=== PATIENT | male | born 1935 | race Caucasian/White ===

== ENCOUNTER 2016-12-20 11:50 | Day surgery (SDC) | payer MEDICARE, OTHER ==
[~2016-12-20 11:50] MED LIST: Lactated Ringers 1,000 ML IV SCH; Lidocaine 1%/Sod Bicarbonate in NS 8.4% 1 ML Syringe PRN; Sodium Chloride 0.9% 10 ML Syringe FLUSH PRN
--- NOTE | 2016-12-20 13:16 | PCM.PREANE ---
Preanesthetic Assessment - Procedure Proposed Procedure: EGD and hemhorroidal banding - Anesthesia/Transfusion/Family Hx Anesthesia History: Prior Anesthesia Without Reaction Family History of Anesthesia Reaction: No - Review of Systems General: Appetite (decreased appetite due to stomach problems after eating) Pulmonary: No Symptoms Cardiovascular: No Symptoms Gastrointestinal: Abdominal pain, Decreased appetite, Nausea Neurological: Dizziness - Physical Assessment NPO Status Date: 12/20/16 NPO Status Time: 06:00 O2 Sat by Pulse Oximetry: 100 Respiratory Rate: 16 Vital Signs: Last Vital Signs Temp 36.4 C 12/20/16 12:05 Pulse 51 L 12/20/16 12:05 Resp 16 12/20/16 12:05 BP 115/54 L 12/20/16 12:05 Pulse Ox 100 12/20/16 12:05 Height: 1.7 m Weight: 64.864 kg ASA Class: 2 Mental Status: Alert & Oriented x3 Airway Class: Mallampati = 2 Dentition: Reports: Normal Dentition Thyro-Mental Finger Breadths: 3 Mouth Opening Finger Breadths: 3 ROM/Head Extension: Full Lungs: Clear to auscultation, Normal respiratory effort Cardiovascular: Regular Rate, Regular Rhythm - Lab Values: Labs from [place] 12/12/16 hgb A1C - 6.5 wbc - 3.7 hgb - 12.9 hct - 37.1 PLT - 149 BMP WNL WITH EXCEPTION OF ELEVATED BUN 29 AND GLUCOSE 130 - Allergies Allergies/Adverse Reactions: Allergies Allergy/AdvReac Type Severity Reaction Status Date / Time Iodinated Contrast Media - Allergy Cannot Verified 12/19/16 13:56 Oral and Remember [Iodinated Contrast Media - IV Dye] terazosin Allergy Cannot Verified 12/19/16 13:56 Remember atorvastatin calcium AdvReac Nausea and Verified 12/19/16 13:56 [From Lipitor] Vomiting morphine AdvReac Hallucinati Verified 12/19/16 13:56 ons - Acknowledgements Anesthesia Type Planned: MAC Pt an Appropriate Candidate for the Planned Anesthesia: Yes Alternatives and Risks of Anesthesia Discussed w Pt/Guardian: Yes Pt/Guardian Understands and Agrees with Anesthesia Plan: Yes PreAnesthesia Questionnaire HEENT History: Reports: Cataract, Impaired vision Other HEENT History: wears eyeglasses Cardiovascular History: Reports: CAD, High cholesterol, Hypertension, Stents Respiratory History: Reports: None Gastrointestinal History: Reports: Gastritis, GERD, Hemorrhoids, Other (see below) Other Gastrointestinal History: duodenitis, , ulcers, umbilical hernia, tubular adenoma, polyps Genitourinary History: Reports: Prostate disorder, Renal calculus, Retention, urinary, UTI, 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: Reports: None Musculoskeletal History: Reports: Arthritis, Gout Neurological History: Reports: Other (see below) Other Neuro History: dizziness Psychiatric History: Reports: None Endocrine/Metabolic History: Reports: Diabetes, type II Hematologic History: Reports: Anemia Immunologic History: Reports: None Oncologic (Cancer) History: Reports: Prostate Dermatologic History: Reports: None - Past Surgical History Head Surgeries/Procedures: Reports: None HEENT Surgical History: Reports: Cataract surgery, Tonsillectomy GI Surgical History: Reports: Colonoscopy, EGD Musculoskeletal Surgical History: Reports: Hip replacement Other Musculoskeletal Surgeries/Procedures:: bilateral hip replacements - SUBSTANCE USE Smoking Status *Q: Former Smoker (Quit 1979 after 30 pack yr hx) Tobacco Use Within Last Twelve Months: Cigarettes Second Hand Smoke Exposure: No Days Per Week of Alcohol Use: 1 Number of Drinks Per Day: 0 Total Drinks Per Week: 0 Recreational Drug Use History: No - HOME MEDS Home Medications: Home Meds Allopurinol 50 mg PO DAILY 10/02/14 [History] Enalapril [Vasotec] 2.5 mg PO DAILY 10/02/14 [History] Pravastatin [Pravachol] 10 mg PO DAILY 10/02/14 [History] Tamsulosin [Flomax] 0.4 mg PO DAILY 10/02/14 [History] metFORMIN [Glucophage XR] 500 mg PO TID 10/01/15 [History] Calcium Carbonate [Calcium] 500 mg PO DAILY 07/31/16 [History] Finasteride 1 tab PO DAILY 07/31/16 [History] Omeprazole 20 mg PO DAILY #90 cap.cr 08/01/16 [Rx] Cholecalciferol (Vitamin D3) [Vitamin D3] 2,000 mg PO DAILY 12/19/16 [History] Ciprofloxacin HCl [Cipro] 250 mg PO BID 12/19/16 [History] Cyanocobalamin (Vitamin B-12) [Vitamin B-12] 1 tab PO DAILY 12/19/16 [History] - CURRENT (IN HOUSE) MEDS Current Meds: Current Medications Lactated Ringer's (Ringers, Lactated) 1,000 mls @ 125 mls/hr IV ASDIRECTED [place] Stop: 12/20/16 23:00 Last Admin: 12/20/16 12:20 Dose: 125 mls/hr Lidocaine/Sodium Bicarbonate (Buffered Lidocaine 1% In Ns 8.4%) 0.25 ml .XX ONETIME PRN PRN Reason: Prior to IV Start Stop: 12/20/16 18:00 Last Admin: 12/20/16 12:20 Dose: 0.25 ml Sodium Chloride (Saline Flush) 10 ml FLUSH ASDIRECTED PRN PRN Reason: Keep Vein Open Stop: 12/20/16 18:00 Preanesthetic Assessment - ANESTHESIA/TRANSFUSION/FAMILY HX Anesthesia/Transfusion History: Prior Anesthesia (no problems) Family History of Anesthesia Reaction: No - PHYSICAL ASSESSMENT O2 Sat by Pulse Oximetry: 100 RR: 16 Vital Signs: Last Vital Signs Temp 36.4 C 12/20/16 12:05 Pulse 51 L 12/20/16 12:05 Resp 16 12/20/16 12:05 BP 115/54 L 12/20/16 12:05 Pulse Ox 100 12/20/16 12:05 Height: 1.7 m Weight: 64.864 kg NPO Status Date: 12/20/16 NPO Status Time: 06:00 - ALLERGIES Allergies/Adverse Reactions: Allergies Allergy/AdvReac Type Severity Reaction Status Date / Time Iodinated Contrast Media - Allergy Cannot Verified 12/19/16 13:56 Oral and Remember [Iodinated Contrast Media - IV Dye] terazosin Allergy Cannot Verified 12/19/16 13:56 Remember atorvastatin calcium AdvReac Nausea and Verified 12/19/16 13:56 [From Lipitor] Vomiting morphine AdvReac Hallucinati Verified 12/19/16 13:56 ons
[2016-12-20] MEDS ORDERED: Lidocaine 1% 4 ML ONE (13:55)
[2016-12-20] MEDS ORDERED: Propofol 200 MG/20 ML SDV ONE (13:55)
--- NOTE | 2016-12-20 14:13 | PCM.OPNOTE ---
- General Post-Op/Procedure Note Date of Surgery/Procedure: 12/20/16 Operative Procedure(s): Diagnostic EGD with cold forceps biopsy, hemorrhoidal banding Pre Op Diagnosis: History of intermittent rectal bleeding with evidence of internal hemorrhoids on recent colonoscopy, acute on chronic epigastric abdominal pain with history of gastric ulcer disease Post-Op Diagnosis: Mild gastritis, mild duodenitis, internal hemorrhoids Anesthesia Technique: MAC Primary Surgeon: Radha Perez Anesthesia Provider: Girish Gonsalez Pathology: Gastric antrum biopsies Fluid Replacement, Intraop: 700 (mL crystalloid) EBL in mLs: 1 Complications: None Condition: Good Free Text/Narrative:: INDICATION FOR PROCEDURE: The patient is a 81-year-old man who was initially referred to me by Dr. Gm Perez for evaluation of abdominal pain. I performed a diagnostic EGD for the patient on 08-11-16 at [facility]. He had been found to have gastritis and duodenitis with the appearance of very early duodenal ulcers. A colonoscopy and also been performed demonstrating internal hemorrhoids. The patient had been having waxing and waning hematochezia since that time and is desirous of banding. He also, despite multiple office visits for counseling and dietary interventions, as well as medical management, has had continued epigastric abdominal pain. We had discussed repeat diagnostic EGD and risks of the associated procedure. We agreed to perform hemorrhoidal banding at that time. The patient found these risks acceptable and agreed to proceed. DESCRIPTION OF PROCEDURE: The patient was taken to the operating room and placed in the left lateral decubitus position. After induction of adequate sedation, a bite block was placed. A standard Olympus gastroscope was inserted into the oropharynx and guided down the esophagus without difficulty. The gastroesophageal junction was appreciated at 40 cm from the teeth. There was no evidence of stricture or esophageal ulcerations. The scope was advanced into the stomach, and there was very mild gastritis, most evident around the antrum with a few scattered petechia. The scope was passed into the proximal jejunum and the duodenum which showed a few petechia in segment D1 and D2. There were no ulcerations. The proximal jejunum was grossly normal in appearance. The scope was withdrawn into the antrum, and additional cold forceps biopsies were obtained. The remainder of the gastric body was examined , and there were no further abnormalities. The scope was retroflexed, and there was no evidence of hiatal hernia. The scope was straightened and withdrawn to the GE junction. Additional cold forceps biopsies were obtained of the distal esophagus. The scope was withdrawn through the remainder of the esophagus and no further abnormalities were noted. The posterior oropharynx was grossly normal in appearance. The scope was then fully withdrawn. Was then turned to hemorrhoidal banding. A lubricated endoscope was placed into the anus. There was mild enlargement of the internal hemorrhoids. All 3 hemorrhoidal complexes were banded using the short shot web producer device. The patient was awakened from sedation and transferred to the recovery room in stable condition having tolerated the procedure well. POSTOPERATIVE PLAN: The patient will follow up in approximately 7-10 days to discuss their pathology and how their symptoms are progressing. The patient is to continue omeprazole 20mg daily and a GERD diet. Post banding instructions also provided. The patient is to call with any worsening of symptoms or questions prior to appointment.
[2016-12-20 15:00] VITALS: BP 128/58
== END 2016-12-20 15:00 | disposition home or self-care (01) ==
LOC: JD.SDS 11:50
PROVIDERS: ATTEND Surgery
DX: K29.50 Unspecified chronic gastritis without bleeding (principal); I10 Essential (primary) hypertension; K21.9 Gastro-esophageal reflux disease without esophagitis; I25.10 Atherosclerotic heart disease of native coronary artery without angina pectoris; Z88.8 Allergy status to other drugs, medicaments and biological substances; E11.9 Type 2 diabetes mellitus without complications; Z87.891 Personal history of nicotine dependence; Z95.5 Presence of coronary angioplasty implant and graft; Z98.890 Other specified postprocedural states; Z79.899 Other long term (current) drug therapy
CPT/HCPCS: 43239; 46945; J7120; 00902; 88305; J2704

== ENCOUNTER 2017-02-28 14:36 | Emergency (ER) | payer MEDICARE, OTHER ==
[2017-02-28] MEDS ORDERED: Sodium Chloride 0.9% 10 ML Syringe FLUSH PRN (15:04)
--- NOTE | 2017-02-28 15:41 | EDM.PDOC ---
ED HPI GENERAL MEDICAL PROBLEM - General Chief Complaint: Syncope Stated Complaint: BLOOD IN STOOL Time Seen by Provider: 02/28/17 14:55 Source of Information: Reports: Patient, RN Notes Reviewed - History of Present Illness INITIAL COMMENTS - FREE TEXT/NARRATIVE: 82-year-old male comes in with rectal bleeding, he states that he had an episode of blood clots passing spontaneously when not on the toilet this past morning a few hours ago and then once again this afternoon about an hour ago. He has had a recent history of rectal bleeding dating back to about the past 3 months. He has had colonoscopy, he has had some hemorrhoids banded and has continued to have "streaks of blood with his BMs "almost every day". I visited with Dr. Durán who upon checking his medical record sees that he did see Dr. Christine, one of the surgeons at [place] in [place] about 2 weeks ago. At that point the endoscope he did see a streak of blood at the banding site, did not recommend further hemorrhoid banding at that time. He has no chest pain or difficulty breathing. He states he feels slightly dizzy when standing, especially when first standing chronically, not any worse today than usual. No abnormal pain, no nausea or vomiting. To his knowledge he is not on any blood thinners. - Related Data Allergies Allergy/AdvReac Type Severity Reaction Status Date / Time Iodinated Contrast Media - Allergy Cannot Verified 02/28/17 14:51 Oral and Remember [Iodinated Contrast Media - IV Dye] terazosin Allergy Cannot Verified 02/28/17 14:51 Remember atorvastatin calcium AdvReac Nausea and Verified 02/28/17 14:51 [From Lipitor] Vomiting morphine AdvReac Hallucinati Verified 02/28/17 14:51 ons Home Meds: Home Meds Allopurinol 50 mg PO DAILY 10/02/14 [History] Enalapril [Vasotec] 2.5 mg PO DAILY 10/02/14 [History] Pravastatin [Pravachol] 10 mg PO DAILY 10/02/14 [History] Tamsulosin [Flomax] 0.4 mg PO BEDTIME 10/02/14 [History] metFORMIN [Glucophage XR] 500 mg PO TID 10/01/15 [History] Calcium Carbonate [Calcium] 500 mg PO DAILY 07/31/16 [History] Finasteride 5 mg PO DAILY 07/31/16 [History] Omeprazole 20 mg PO DAILY #90 cap.cr 08/01/16 [Rx] Cholecalciferol (Vitamin D3) [Vitamin D3] 2,000 mg PO DAILY 12/19/16 [History] Cyanocobalamin (Vitamin B-12) [Vitamin B-12] 1,000 mcg PO DAILY 12/19/16 [ History] Past Medical History HEENT History: Reports: Cataract, Impaired Vision Other HEENT History: wears eyeglasses Cardiovascular History: Reports: CAD, High Cholesterol, Hypertension, Stents Respiratory History: Reports: None Gastrointestinal History: Reports: Gastritis, GERD, Hemorrhoids, Other (See Below) Other Gastrointestinal History: duodenitis, , ulcers, umbilical hernia, tubular adenoma, polyps Genitourinary History: Reports: Prostate Disorder, Renal Calculus, Retention, Urinary, UTI, Recurrent 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 Musculoskeletal History: Reports: Arthritis, Gout Neurological History: Reports: Other (See Below) Other Neuro History: dizziness Psychiatric History: Reports: None Endocrine/Metabolic History: Reports: Diabetes, Type II Hematologic History: Reports: Anemia Immunologic History: Reports: None Oncologic (Cancer) History: Reports: Prostate Dermatologic History: Reports: None - Past Surgical History Head Surgeries/Procedures: Reports: None HEENT Surgical History: Reports: Cataract Surgery, Tonsillectomy Musculoskeletal Surgical History: Reports: Hip Replacement Social & Family History - Family History Family Medical History: Noncontributory - Tobacco Use Smoking Status *Q: Never Smoker Years of Tobacco use: 30 Used Tobacco, but Quit: Yes Month Tobacco Last Used: 1959 Second Hand Smoke Exposure: No - Caffeine Use Caffeine Use: Reports: None - Alcohol Use Days Per Week of Alcohol Use: 1 Number of Drinks Per Day: 0 Total Drinks Per Week: 0 - Recreational Drug Use Recreational Drug Use: No - Living Situation & Occupation Living situation: Reports: , with Spouse ED ROS GENERAL - Review of Systems Review Of Systems: See Below Constitutional: Denies: Fever, Chills HEENT: Reports: No Symptoms Respiratory: Denies: Shortness of Breath, Cough Cardiovascular: Denies: Chest Pain GI/Abdominal: Reports: Hematochezia (had 2 episodes of blood clots passing per rectum today). Denies: Abdominal Pain, Nausea, Vomiting Musculoskeletal: Reports: No Symptoms Skin: Reports: No Symptoms Neurological: Reports: Dizziness (Mildly, chronically) ED EXAM, GI/ABD - Physical Exam Exam: See Below General Appearance: Alert Throat/Mouth: Normal Inspection, Normal Oropharynx Head: No: Facial Swelling Neck: Normal Inspection, Supple Respiratory/Chest: No Respiratory Distress, Lungs Clear, Normal Breath Sounds Cardiovascular: Regular Rate, Rhythm GI/Abdominal: Soft, Non-Tender. No: Guarding Rectal (Males) Exam: Other (Trace of brown tinged mucus, no stool palpable, no unusual mass or tenderness palpable, but brown mucus did test heme-positive) Back Exam: No: CVA Tenderness (L), CVA Tenderness (R) Extremities: Normal Inspection. No: Pedal Edema, Leg Pain Neurological: Alert, No Motor/Sensory Deficits Skin Exam: Warm, Dry, Normal Color EKG INTERPRETATION EKG Date: 02/28/17 Rhythm: NSR Jolon: normal P-wave: present QRS: normal ST-T: normal Course - Vital Signs Last Recorded V/S: Last Vital Signs Temp 98.1 F 02/28/17 14:40 Pulse 52 L 02/28/17 17:30 Resp 18 02/28/17 17:30 BP 156/70 H 02/28/17 17:30 Pulse Ox 97 02/28/17 17:30 Orthostatic Blood Pressure [ 103/58 Standing] Orthostatic Blood Pressure [ 111/53 Supine] - Orders/Labs/Meds Orders: Active Orders 24 hr Category Date Time Status EKG 12 Lead [EKG Documentation Completion] [RC] STAT Care 02/28/17 15:04 Active Peripheral IV Care [RC] . DIRECTED Care 02/28/17 15:05 Active Peripheral IV Insertion Adult [OM.PC] Stat Oth 02/28/17 15:04 Ordered Labs: Laboratory Tests 02/28/17 02/28/17 02/28/17 Range/Units 15:05 15:05 15:05 WBC 4.04 L (4.23-9.07) K/mm3 RBC 3.88 L (4.63-6.08) M/mm3 Hgb 12.6 L (13.7-17.5) gm/L Hct 37.6 L (40.1-51.0) % MCV 96.9 H (79.0-92.2) fl MCH 32.5 H (25.7-32.2) pg MCHC 33.5 (32.2-35.5) g/dl RDW Std Deviation 45.1 H (35.1-43.9) fL Plt Count 160 L (163-337) K/mm3 MPV 9.4 (9.4-12.3) fl Neut % (Auto) 67.9 (34.0-67.9) % Lymph % (Auto) 13.4 L (21.8-53.1) % [place] % (Auto) 13.6 H (5.3-12.2) % Eos % (Auto) 4.7 (0.8-7.0) Baso % (Auto) 0.2 (0.1-1.2) % Neut # (Auto) 2.74 (1.78-5.38) K/mm3 Lymph # (Auto) 0.54 L (1.32-3.57) K/mm3 [place] # (Auto) 0.55 (0.30-0.82) K/mm3 Eos # (Auto) 0.19 (0.04-0.54) K/mm3 Baso # (Auto) 0.01 (0.01-0.08) K/mm3 PT 10.2 (8.0-13.0) SECONDS INR 0.94 APTT (22-36) SECONDS Sodium 141 (136-145) mEq/L Potassium 4.4 (3.5-5.1) mEq/L Chloride 105 (98-107) mEq/L Carbon Dioxide 27 (21-32) mEq/L Anion Gap 13.4 (5-15) BUN 26 H (7-18) mg/dL Creatinine 0.9 (0.7-1.3) mg/dL Est Cr Clr Drug Dosing 60.18 mL/min Estimated GFR (MDRD) > 60 (>60) mL/min BUN/Creatinine Ratio 28.9 H (14-18) Glucose 183 H (83-115) mg/dL Calcium 9.3 (8.5-10.1) mg/dL Total Bilirubin 0.4 (0.2-1.0) mg/dL AST 19 (15-37) U/L ALT 31 (16-63) U/L Alkaline Phosphatase 104 (46-116) U/L Total Protein 6.9 (6.4-8.2) g/dl Albumin 3.7 (3.4-5.0) g/dl Globulin 3.2 gm/dL Albumin/Globulin Ratio 1.2 (1-2) Blood Type Gel Antibody Screen 02/28/17 02/28/17 Range/Units 15:05 15:05 WBC (4.23-9.07) K/mm3 RBC (4.63-6.08) M/mm3 Hgb (13.7-17.5) gm/L Hct (40.1-51.0) % MCV (79.0-92.2) fl MCH (25.7-32.2) pg MCHC (32.2-35.5) g/dl RDW Std Deviation (35.1-43.9) fL Plt Count (163-337) K/mm3 MPV (9.4-12.3) fl Neut % (Auto) (34.0-67.9) % Lymph % (Auto) (21.8-53.1) % [place] % (Auto) (5.3-12.2) % Eos % (Auto) (0.8-7.0) Baso % (Auto) (0.1-1.2) % Neut # (Auto) (1.78-5.38) K/mm3 Lymph # (Auto) (1.32-3.57) K/mm3 [place] # (Auto) (0.30-0.82) K/mm3 Eos # (Auto) (0.04-0.54) K/mm3 Baso # (Auto) (0.01-0.08) K/mm3 PT (8.0-13.0) SECONDS INR APTT 26 (22-36) SECONDS Sodium (136-145) mEq/L Potassium (3.5-5.1) mEq/L Chloride (98-107) mEq/L Carbon Dioxide (21-32) mEq/L Anion Gap (5-15) BUN (7-18) mg/dL Creatinine (0.7-1.3) mg/dL Est Cr Clr Drug Dosing mL/min Estimated GFR (MDRD) (>60) mL/min BUN/Creatinine Ratio (14-18) Glucose (83-115) mg/dL Calcium (8.5-10.1) mg/dL Total Bilirubin (0.2-1.0) mg/dL AST (15-37) U/L ALT (16-63) U/L Alkaline Phosphatase (46-116) U/L Total Protein (6.4-8.2) g/dl Albumin (3.4-5.0) g/dl Globulin gm/dL Albumin/Globulin Ratio (1-2) Blood Type O POSITIVE Gel Antibody Screen Negative Meds: Medications Discontinued Medications Generic Name Dose Route Start Last Admin Trade Name Sundar PRN Reason Stop Dose Admin Sodium Chloride 10 ml 02/28/17 15:04 02/28/17 15:20 Saline Flush FLUSH 10 ml ASDIRECTED PRN Administration Keep Vein Open - Re-Assessments/Exams Free Text/Narrative Re-Assessment/Exam: 02/28/17 17:22. hgb 12.5, vitals remain stable, he has been observed for about 2 hrs awaiting labs, no further bleeding while here in the ED, when I examined his perirectal area prior to discharge this was a small amt of blood tinged mucous and on further questioning it sounds like this is what he observed at home. He has had considerable work up for similar and likely more pronounced bleeding in the past. He does not appear to be having significant bleeding at this time. He is not a candidate for admission at this time. He will come back if sx worsen. Departure - Departure Time of Disposition: 17:34 Disposition: Home, Self-Care 01 Condition: fair Clinical Impression: Rectal bleed - Discharge Information Referrals: Gm Perez MD [Primary Care Provider] - Forms: ED Department Discharge Additional Instructions: rest, drink plenty of water, try follow up with Dr Durán tomorrow or Sunday , call in AM for appt., return to ED if sx worsening in any way. - My Orders Last 24 Hours: My Active Orders 02/28/17 15:04 EKG 12 Lead [EKG Documentation Completion] [RC] STAT Peripheral IV Insertion Adult [OM.PC] Stat 02/28/17 15:05 Peripheral IV Care [RC] . DIRECTED - Assessment/Plan Last 24 Hours: My Active Orders 02/28/17 15:04 EKG 12 Lead [EKG Documentation Completion] [RC] STAT Peripheral IV Insertion Adult [OM.PC] Stat 02/28/17 15:05 Peripheral IV Care [RC] . DIRECTED
[2017-02-28 18:02] VITALS: BP 156/70
== END 2017-02-28 17:55 | disposition home or self-care (01) ==
LOC: JD.ED 14:36
DX: K62.5 Hemorrhage of anus and rectum (principal); I10 Essential (primary) hypertension; I25.10 Atherosclerotic heart disease of native coronary artery without angina pectoris; E78.00 Pure hypercholesterolemia, unspecified; K21.9 Gastro-esophageal reflux disease without esophagitis; M19.90 Unspecified osteoarthritis, unspecified site; E11.9 Type 2 diabetes mellitus without complications; Z98.49 Cataract extraction status, unspecified eye; Z98.890 Other specified postprocedural states; Z96.649 Presence of unspecified artificial hip joint; Z87.891 Personal history of nicotine dependence; Z79.84 Long term (current) use of oral hypoglycemic drugs; Z79.899 Other long term (current) drug therapy; Z88.5 Allergy status to narcotic agent; Z88.8 Allergy status to other drugs, medicaments and biological substances; Z88.7 Allergy status to serum and vaccine; Z85.46 Personal history of malignant neoplasm of prostate
CPT/HCPCS: 36415; 80053; 85025; 85610; 85730; 86850; 86900; 86901; 93005; 99284; J7050; 99283

== ENCOUNTER 2017-04-27 21:27 | Emergency (ER) | payer MEDICARE, OTHER ==
--- NOTE | 2017-04-27 22:42 | EDM.PDOC ---
ED HPI GENERAL MEDICAL PROBLEM - General Chief Complaint: Genitourinary Problem Stated Complaint: BLOOD IN URINE Time Seen by Provider: 04/27/17 22:20 Source of Information: Reports: Patient History Limitations: Reports: No Limitations - History of Present Illness INITIAL COMMENTS - FREE TEXT/NARRATIVE: This is an 82-year-old male. He has a history of prostate cancer for which she receives a intramuscular shot every 6 months for the prostate cancer. He had one of the shots on Sunday or and has been doing fine. Apparently today when he got up he was not able to urinate but then he went to the leg and around 1 PM when he urinated he noted blood. He states there was lots of blood that just came out. Later he urinated again and noted blood clots. He denies any pain with urination. He denies any abdominal pain or back pain. He states he has a history of kidney stones but normally they hurt terribly and he's had nothing like that today. Because of all the blood in his urine he is concerned and comes to the ER for evaluation. He denies any fever or chills denies any cough or congestion states he's been feeling good other than where they gave him his shot. The patient does indicate that at times he has used a straight catheter for urinary retention but is not using a straight catheter for years. - Related Data Allergies Allergy/AdvReac Type Severity Reaction Status Date / Time Iodinated Contrast- Oral and Allergy Cannot Verified 02/28/17 14:51 IV Dye Remember [Iodinated Contrast Media - IV Dye] terazosin Allergy Cannot Verified 02/28/17 14:51 Remember atorvastatin calcium AdvReac Nausea and Verified 02/28/17 14:51 [From Lipitor] Vomiting morphine AdvReac Hallucinati Verified 02/28/17 14:51 ons Home Meds: Home Meds Allopurinol 50 mg PO DAILY 10/02/14 [History] Enalapril [Vasotec] 2.5 mg PO DAILY 10/02/14 [History] Pravastatin [Pravachol] 10 mg PO DAILY 10/02/14 [History] Tamsulosin [Flomax] 0.4 mg PO BEDTIME 10/02/14 [History] metFORMIN [Glucophage XR] 500 mg PO TID 10/01/15 [History] Finasteride 5 mg PO DAILY 07/31/16 [History] Omeprazole 20 mg PO DAILY #90 cap.cr 08/01/16 [Rx] Cholecalciferol (Vitamin D3) [Vitamin D3] 2,000 mg PO DAILY 12/19/16 [History] Cyanocobalamin (Vitamin B-12) [Vitamin B-12] 1,000 mcg PO DAILY 12/19/16 [ History] Past Medical History HEENT History: Reports: Cataract, Impaired Vision Other HEENT History: wears eyeglasses Cardiovascular History: Reports: CAD, High Cholesterol, Hypertension, Stents Respiratory History: Reports: None Gastrointestinal History: Reports: Chronic Diarrhea, Gastritis, GERD, GI Bleed, Hemorrhoids, Other (See Below) Other Gastrointestinal History: duodenitis, , ulcers, umbilical hernia, tubular adenoma, polyps Genitourinary History: Reports: Prostate Disorder, Renal Calculus, Retention, Urinary, UTI, 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: Reports: None Musculoskeletal History: Reports: Arthritis, Gout Neurological History: Reports: Other (See Below) Other Neuro History: dizziness Psychiatric History: Reports: None Endocrine/Metabolic History: Reports: Diabetes, Type II Hematologic History: Reports: Anemia Immunologic History: Reports: None Oncologic (Cancer) History: Reports: Prostate Dermatologic History: Reports: None - Past Surgical History Head Surgeries/Procedures: Reports: None HEENT Surgical History: Reports: Cataract Surgery, Tonsillectomy Musculoskeletal Surgical History: Reports: Hip Replacement Social & Family History - Family History Family Medical History: Noncontributory - Tobacco Use Smoking Status *Q: Former Smoker Years of Tobacco use: 30 Used Tobacco, but Quit: Yes Month Tobacco Last Used: 1983 Second Hand Smoke Exposure: No - Caffeine Use Caffeine Use: Reports: None - Alcohol Use Days Per Week of Alcohol Use: 1 Number of Drinks Per Day: 0 Total Drinks Per Week: 0 - Recreational Drug Use Recreational Drug Use: Yes Recreational Drug Use Frequency: Rarely - Living Situation & Occupation Living situation: Reports: , with Spouse ED ROS GENERAL - Review of Systems Review Of Systems: See Below Constitutional: Denies: Fever, Chills HEENT: Reports: No Symptoms Respiratory: Reports: No Symptoms Cardiovascular: Reports: No Symptoms Endocrine: Reports: No Symptoms GI/Abdominal: Denies: Abdominal Pain, Diarrhea, Nausea, Vomiting : Reports: Hematuria Musculoskeletal: Reports: No Symptoms Skin: Reports: No Symptoms Neurological: Reports: No Symptoms Psychiatric: Reports: No Symptoms Hematologic/Lymphatic: Reports: No Symptoms ED EXAM, RENAL/ - Physical Exam Exam: See Below Exam Limited By: No Limitations General Appearance: Alert, WD/WN, No Apparent Distress Eye Exam: Bilateral Eye: Normal Inspection Ears: Normal External Exam, Normal Canal, Normal TMs Nose: Normal Inspection Throat/Mouth: Normal Inspection, Normal Lips, Normal Voice Head: Atraumatic, Normocephalic Neck: Supple Respiratory/Chest: No Respiratory Distress, Lungs Clear Cardiovascular: Regular Rate, Rhythm, No Murmur GI/Abdominal: Soft, Non-Tender, No Distention. No: Guarding, Rigid, Rebound, Tender, Mass Back Exam: Full Range of Motion Extremities: Normal Inspection, Normal Range of Motion Neurological: Alert, Oriented Psychiatric: Normal Affect, Normal Mood Skin Exam: Warm, Dry Course - Vital Signs Last Recorded V/S: Last Vital Signs Temp 98.4 F 04/27/17 21:35 Pulse 68 04/27/17 21:35 Resp 16 04/27/17 21:35 BP 117/61 04/27/17 21:35 Pulse Ox 99 04/27/17 21:35 - Orders/Labs/Meds Labs: Laboratory Tests 04/27/17 04/27/17 04/27/17 Range/Units 21:52 23:15 23:15 WBC 4.30 (4.23-9.07) K/mm3 RBC 3.65 L (4.63-6.08) M/mm3 Hgb 12.1 L (13.7-17.5) gm/L Hct 34.9 L (40.1-51.0) % MCV 95.6 H (79.0-92.2) fl MCH 33.2 H (25.7-32.2) pg MCHC 34.7 (32.2-35.5) g/dl RDW Std Deviation 43.9 (35.1-43.9) fL Plt Count 145 L (163-337) K/mm3 MPV 9.2 L (9.4-12.3) fl Neut % (Auto) 68.8 H (34.0-67.9) % Lymph % (Auto) 13.3 L (21.8-53.1) % [place] % (Auto) 13.7 H (5.3-12.2) % Eos % (Auto) 3.5 (0.8-7.0) Baso % (Auto) 0.2 (0.1-1.2) % Neut # (Auto) 2.96 (1.78-5.38) K/mm3 Lymph # (Auto) 0.57 L (1.32-3.57) K/mm3 [place] # (Auto) 0.59 (0.30-0.82) K/mm3 Eos # (Auto) 0.15 (0.04-0.54) K/mm3 Baso # (Auto) 0.01 (0.01-0.08) K/mm3 Sodium 139 (136-145) mEq/L Potassium 3.7 (3.5-5.1) mEq/L Chloride 103 (98-107) mEq/L Carbon Dioxide 27 (21-32) mEq/L Anion Gap 12.7 (5-15) BUN 25 H (7-18) mg/dL Creatinine 1.1 (0.7-1.3) mg/dL Est Cr Clr Drug Dosing TNP Estimated GFR (MDRD) > 60 (>60) mL/min BUN/Creatinine Ratio 22.7 H (14-18) Glucose 167 H (83-115) mg/dL Calcium 9.3 (8.5-10.1) mg/dL Total Bilirubin 0.4 (0.2-1.0) mg/dL AST 17 (15-37) U/L ALT 29 (16-63) U/L Alkaline Phosphatase 112 (46-116) U/L Total Protein 6.5 (6.4-8.2) g/dl Albumin 3.3 L (3.4-5.0) g/dl Globulin 3.2 gm/dL Albumin/Globulin Ratio 1.0 (1-2) Urine Color [place] H (Yellow) Urine Appearance Slt cloudy H (Clear) Urine pH 6.0 (5.0-8.0) Ur Specific [place] 1.020 (1.005-1.030) Urine Protein 2+ H (Negative) Urine Glucose (UA) Negative (Negative) Urine Ketones Negative (Negative) Urine Occult Blood 3+ H (Negative) Urine Nitrite Negative (Negative) Urine Bilirubin Negative (Negative) Urine Urobilinogen 0.2 (0.2-1.0) Ur Leukocyte Esterase Negative (Negative) Urine RBC >100 H (0-5) /hpf Urine WBC 0-5 (0-5) /hpf Ur Epithelial Cells 0-5 (0-5) /hpf Amorphous Sediment Few H (NOT SEEN) /hpf Urine Bacteria Few (FEW) /hpf Urine Mucus Few (FEW) /hpf - Re-Assessments/Exams Free Text/Narrative Re-Assessment/Exam: 04/28/17 02:45 I spoke to the patient regarding his blood results and his urinalysis. The blood appears to be dissipating at this time in his urine. He is slightly anemic and has some abnormalities in his differential but no essential acute problems. He wants to go home at this time I encouraged him to follow-up with his family doctor this coming week or speak to his urologist. If the bleeding comes back and he needs to come back to the ER. Departure - Departure Time of Disposition: 02:46 Disposition: Home, Self-Care 01 Condition: Good Clinical Impression: Prostate cancer Hematuria Qualifiers: Hematuria type: gross Qualified Code(s): R31.0 - Gross hematuria - Discharge Information Referrals: Gm Perez MD [Primary Care Provider] - Forms: ED Department Discharge Additional Instructions: Continue to drink lots of fluids, if the bleeding resumes with blood clots you need to return to the ER otherwise continue with the fluids and follow-up with your family doctor next week as scheduled, you may also call your urologist's nurse and speak to her regarding the blood in the urine, return to the ER if your symptoms worsen
[2017-04-28 00:26] VITALS: BP 117/61
== END 2017-04-28 03:00 | disposition home or self-care (01) ==
LOC: JD.ED 21:27
DX: C61 Malignant neoplasm of prostate (principal); R31.0 Gross hematuria; I25.10 Atherosclerotic heart disease of native coronary artery without angina pectoris; E78.00 Pure hypercholesterolemia, unspecified; I10 Essential (primary) hypertension; E11.9 Type 2 diabetes mellitus without complications; K21.9 Gastro-esophageal reflux disease without esophagitis; Z91.041 Radiographic dye allergy status; Z88.5 Allergy status to narcotic agent; Z88.8 Allergy status to other drugs, medicaments and biological substances; Z79.899 Other long term (current) drug therapy; Z79.84 Long term (current) use of oral hypoglycemic drugs; Z87.442 Personal history of urinary calculi; Z87.440 Personal history of urinary (tract) infections; Z86.2 Personal history of diseases of the blood and blood-forming organs and certain disorders involving the immune mechanism; Z98.49 Cataract extraction status, unspecified eye; Z98.890 Other specified postprocedural states; Z96.649 Presence of unspecified artificial hip joint; Z87.891 Personal history of nicotine dependence
CPT/HCPCS: 36415; 80053; 81001; 85025; 99282; 99283

== ENCOUNTER 2017-09-21 14:45 | Emergency (ER) | payer MEDICARE, OTHER ==
[2017-09-21 15:00] VITALS: BP 138/76
[2017-09-21] MEDS ORDERED: Sodium Chloride 0.9% 10 ML Syringe FLUSH PRN (15:14)
[2017-09-21] MEDS ORDERED: Pantoprazole 40 MG Vial IVPUSH ONE (15:15)
--- NOTE | 2017-09-21 16:43 | EDM.PDOC ---
ED HPI GENERAL MEDICAL PROBLEM - General Chief Complaint: Abdominal Pain Stated Complaint: BLACK STOOLS Time Seen by Provider: 09/21/17 14:57 Source of Information: Reports: Patient History Limitations: Reports: No Limitations - History of Present Illness INITIAL COMMENTS - FREE TEXT/NARRATIVE: The patient presents with 5 days of black stools. He has no fever, chills, cough, chest pain, shortness of breath, dizziness, abdominal pain or dysuria. He says he had prostate cancer and had radiation. Since then he has had hematuria and blood in his stools. He had a colonoscopy a couple years ago. Dr Leo had to cautarize some vessels in his colon. He did take some pepto bismal a few days ago, but the dark stools started before that. Onset: Gradual Duration: Day(s): (5) Severity: Mild Improves with: Reports: None Worsens with: Reports: None Associated Symptoms: Reports: No Other Symptoms - Related Data Allergies Allergy/AdvReac Type Severity Reaction Status Date / Time Iodinated Contrast- Oral and Allergy Cannot Verified 02/28/17 14:51 IV Dye Remember [Iodinated Contrast Media - IV Dye] terazosin Allergy Cannot Verified 02/28/17 14:51 Remember atorvastatin calcium AdvReac Nausea and Verified 02/28/17 14:51 [From Lipitor] Vomiting morphine AdvReac Hallucinati Verified 02/28/17 14:51 ons Home Meds: Home Meds Allopurinol 50 mg PO DAILY 10/02/14 [History] Enalapril [Vasotec] 2.5 mg PO DAILY 10/02/14 [History] Pravastatin [Pravachol] 10 mg PO DAILY 10/02/14 [History] Tamsulosin [Flomax] 0.4 mg PO BEDTIME 10/02/14 [History] Finasteride 5 mg PO DAILY 07/31/16 [History] Omeprazole 20 mg PO DAILY #90 cap.cr 08/01/16 [Rx] Cholecalciferol (Vitamin D3) [Vitamin D3] 2,000 mg PO DAILY 12/19/16 [History] Cyanocobalamin (Vitamin B-12) [Vitamin B-12] 1,000 mcg PO DAILY 12/19/16 [ History] sitaGLIPtin Phosphate [Januvia] 50 mg PO DAILY 09/21/17 [History] Past Medical History HEENT History: Reports: Cataract, Impaired Vision Other HEENT History: wears eyeglasses Cardiovascular History: Reports: CAD, High Cholesterol, Hypertension, Stents Respiratory History: Reports: None Gastrointestinal History: Reports: Chronic Diarrhea, Gastritis, GERD, GI Bleed, Hemorrhoids, Other (See Below) Other Gastrointestinal History: duodenitis, , ulcers, umbilical hernia, tubular adenoma, polyps Genitourinary History: Reports: Prostate Disorder, Renal Calculus, Retention, Urinary, UTI, Recurrent 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 Musculoskeletal History: Reports: Arthritis, Gout Neurological History: Reports: Other (See Below) Other Neuro History: dizziness Psychiatric History: Reports: None Endocrine/Metabolic History: Reports: Diabetes, Type II Hematologic History: Reports: Anemia Immunologic History: Reports: None Oncologic (Cancer) History: Reports: Prostate Dermatologic History: Reports: None - Past Surgical History Head Surgeries/Procedures: Reports: None HEENT Surgical History: Reports: Cataract Surgery, Tonsillectomy Musculoskeletal Surgical History: Reports: Hip Replacement Social & Family History - Family History Family Medical History: Noncontributory - Tobacco Use Smoking Status *Q: Former Smoker Years of Tobacco use: 30 Used Tobacco, but Quit: Yes Month Tobacco Last Used: 45 Second Hand Smoke Exposure: No - Caffeine Use Caffeine Use: Reports: Coffee, Tea - Alcohol Use Days Per Week of Alcohol Use: 1 Number of Drinks Per Day: 0 Total Drinks Per Week: 0 - Recreational Drug Use Recreational Drug Use: No Recreational Drug Use Frequency: Rarely - Living Situation & Occupation Living situation: Reports: , with Spouse ED ROS GENERAL - Review of Systems Review Of Systems: See Below Constitutional: Reports: No Symptoms HEENT: Reports: No Symptoms Respiratory: Reports: No Symptoms Cardiovascular: Reports: No Symptoms Endocrine: Reports: No Symptoms GI/Abdominal: Reports: No Symptoms : Reports: No Symptoms Musculoskeletal: Reports: No Symptoms ED EXAM, GI/ABD - Physical Exam Exam: See Below Exam Limited By: No Limitations General Appearance: Alert, No Apparent Distress Ears: Normal External Exam Nose: Normal Inspection Head: Atraumatic, Normocephalic Neck: Normal Inspection Respiratory/Chest: No Respiratory Distress, Lungs Clear, Normal Breath Sounds Cardiovascular: Regular Rate, Rhythm, No Edema, No Murmur GI/Abdominal Exam: Soft, Non-Tender, No Organomegaly, No Mass Rectal (Males) Exam: Heme + Stool (weakly positive) Back Exam: Normal Inspection Course - Vital Signs Last Recorded V/S: Last Vital Signs Temp 97.5 F 09/21/17 14:57 Pulse 64 09/21/17 14:57 Resp 20 09/21/17 14:57 BP 138/76 09/21/17 14:57 Pulse Ox 100 09/21/17 14:57 - Orders/Labs/Meds Orders: Active Orders 24 hr Category Date Time Status Cardiac Monitoring [RC] . DIRECTED Care 09/21/17 15:14 Active Peripheral IV Care [RC] . DIRECTED Care 09/21/17 15:15 Active Sodium Chloride 0.9% [Saline Flush] Med 09/21/17 15:14 Active 10 ml FLUSH ASDIRECTED PRN Peripheral IV Insertion Adult [OM.PC] Stat Oth 09/21/17 15:14 Ordered Medication Orders Sodium Chloride (Saline Flush) 10 ml FLUSH ASDIRECTED PRN PRN Reason: Keep Vein Open Last Admin: 09/21/17 15:27 Dose: 10 ml Labs: Laboratory Tests 09/21/17 09/21/17 Range/Units 15:20 15:20 WBC 4.93 (4.23-9.07) K/mm3 RBC 4.05 L (4.63-6.08) M/mm3 Hgb 13.2 L (13.7-17.5) gm/L Hct 38.6 L (40.1-51.0) % MCV 95.3 H (79.0-92.2) fl MCH 32.6 H (25.7-32.2) pg MCHC 34.2 (32.2-35.5) g/dl RDW Std Deviation 44.2 H (35.1-43.9) fL Plt Count 162 L (163-337) K/mm3 MPV 9.6 (9.4-12.3) fl Neut % (Auto) 71.1 H (34.0-67.9) % Lymph % (Auto) 11.0 L (21.8-53.1) % [place] % (Auto) 13.2 H (5.3-12.2) % Eos % (Auto) 3.9 (0.8-7.0) Baso % (Auto) 0.2 (0.1-1.2) % Neut # (Auto) 3.51 (1.78-5.38) K/mm3 Lymph # (Auto) 0.54 L (1.32-3.57) K/mm3 [place] # (Auto) 0.65 (0.30-0.82) K/mm3 Eos # (Auto) 0.19 (0.04-0.54) K/mm3 Baso # (Auto) 0.01 (0.01-0.08) K/mm3 Sodium 140 (136-145) mEq/L Potassium 3.9 (3.5-5.1) mEq/L Chloride 105 (98-107) mEq/L Carbon Dioxide 26 (21-32) mEq/L Anion Gap 12.9 (5-15) BUN 30 H (7-18) mg/dL Creatinine 1.0 (0.7-1.3) mg/dL Est Cr Clr Drug Dosing 48.51 mL/min Estimated GFR (MDRD) > 60 (>60) mL/min BUN/Creatinine Ratio 30.0 H (14-18) Glucose 182 H (83-115) mg/dL Calcium 9.1 (8.5-10.1) mg/dL Total Bilirubin 0.4 (0.2-1.0) mg/dL AST 22 (15-37) U/L ALT 32 (16-63) U/L Alkaline Phosphatase 105 (46-116) U/L Total Protein 6.7 (6.4-8.2) g/dl Albumin 3.5 (3.4-5.0) g/dl Globulin 3.2 gm/dL Albumin/Globulin Ratio 1.1 (1-2) Meds: Medications Generic Name Dose Route Start Last Admin Trade Name Freq PRN Reason Stop Dose Admin Sodium Chloride 10 ml 09/21/17 15:14 09/21/17 15:27 Saline Flush FLUSH 10 ml ASDIRECTED PRN Administration Keep Vein Open Discontinued Medications Generic Name Dose Route Start Last Admin Trade Name Freq PRN Reason Stop Dose Admin Pantoprazole Sodium 40 mg 09/21/17 15:15 09/21/17 15:27 Protonix Iv IVPUSH 09/21/17 15:16 40 mg ONETIME ONE Administration - Re-Assessments/Exams Free Text/Narrative Re-Assessment/Exam: 09/21/17 16:44 I ordered an IV saline lock. I did a rectal exam and the stool was not dark and it was just weakly positive. His Hgb is good at 13.2. His glucose is 182. I feel he may need a colonoscopy and possibly a EGD. I have an appointment set up for Sunday at 2:15. Departure - Departure Time of Disposition: 16:45 Disposition: Home, Self-Care 01 Condition: Good Clinical Impression: GI bleed Qualifiers: GI bleed type/associated pathology: unspecified gastrointestinal hemorrhage type Qualified Code(s): K92.2 - Gastrointestinal hemorrhage, unspecified - Discharge Information Referrals: Gm Perez MD [Primary Care Provider] - (SundayOctober 05 at 2:15 ) Additional Instructions: Take your medication as prescribed. I have set up a follow up appointment with Dr Perez for SundayOctober 05 at 2:15pm. Please return if you are worse. - My Orders Last 24 Hours: My Active Orders 09/21/17 15:14 Cardiac Monitoring [RC] . DIRECTED Sodium Chloride 0.9% [Saline Flush] 10 ml FLUSH ASDIRECTED PRN Peripheral IV Insertion Adult [OM.PC] Stat 09/21/17 15:15 Peripheral IV Care [RC] . DIRECTED - Assessment/Plan Last 24 Hours: My Active Orders 09/21/17 15:14 Cardiac Monitoring [RC] . DIRECTED Sodium Chloride 0.9% [Saline Flush] 10 ml FLUSH ASDIRECTED PRN Peripheral IV Insertion Adult [OM.PC] Stat 09/21/17 15:15 Peripheral IV Care [RC] . DIRECTED
== END 2017-09-21 17:01 | disposition home or self-care (01) ==
LOC: JD.ED 14:45
DX: K92.2 Gastrointestinal hemorrhage, unspecified (principal); Z87.891 Personal history of nicotine dependence; I10 Essential (primary) hypertension; E78.00 Pure hypercholesterolemia, unspecified; E11.9 Type 2 diabetes mellitus without complications; Z79.899 Other long term (current) drug therapy; Z91.041 Radiographic dye allergy status; Z88.5 Allergy status to narcotic agent; Z88.8 Allergy status to other drugs, medicaments and biological substances
CPT/HCPCS: 36415; 80053; 82270; 85025; 96374; 99285; C9113; J7050; 99284

== ENCOUNTER 2019-09-14 00:52 | Emergency (ER) | payer MEDICARE, OTHER ==
[2019-09-14 01:05] VITALS: BP 172/72; PULSE 60
--- NOTE | 2019-09-14 01:09 | EDM.PDOC ---
ED HPI GENERAL MEDICAL PROBLEM - General Chief Complaint: Abdominal Pain Stated Complaint: CRAMPS Time Seen by Provider: 09/14/19 01:09 - History of Present Illness INITIAL COMMENTS - FREE TEXT/NARRATIVE: 84-year-old male presents emergency room with abdominal discomfort. Over the last day or so the patient does develop some nausea and stomach cramps. He has not thrown up but he felt like he was going to yesterday nausea- like sensation when the stomach is cramping up. Patient denies any fevers or chills no diarrhea no constipation bowel movements have been fairly normal. He' s had no black or tarry stools and up until this is been doing pretty well. Abdominal Pain Score (Numeric/FACES): 8 - Related Data Allergies Allergy/AdvReac Type Severity Reaction Status Date / Time terazosin Allergy Cannot Verified 09/14/19 01:05 Remember atorvastatin calcium AdvReac Nausea and Verified 09/14/19 01:05 [From Lipitor] Vomiting morphine AdvReac Hallucinati Verified 09/14/19 01:05 ons Home Meds: Home Meds Allopurinol 50 mg PO DAILY 10/02/14 [History] Enalapril [Vasotec] 2.5 mg PO DAILY 10/02/14 [History] Pravastatin [Pravachol] 10 mg PO DAILY 10/02/14 [History] Tamsulosin [Flomax] 0.4 mg PO BEDTIME 10/02/14 [History] Finasteride 5 mg PO DAILY 07/31/16 [History] Omeprazole 20 mg PO DAILY #90 cap.cr 08/01/16 [Rx] Cyanocobalamin (Vitamin B-12) [Vitamin B-12] 1,000 mcg PO DAILY 12/19/16 [ History] sitaGLIPtin Phosphate [Januvia] 50 mg PO DAILY 09/21/17 [History] Nitrofurantoin Monohyd/M-Cryst [Macrobid 100 mg Capsule] 100 mg PO Q12H #9 capsule 09/14/19 [Rx] Ondansetron [Zofran ODT] 4 mg PO Q6H PRN #8 tab.dis 09/14/19 [Rx] Past Medical History HEENT History: Reports: Cataract, Impaired Vision Other HEENT History: wears eyeglasses Cardiovascular History: Reports: CAD, High Cholesterol, Hypertension, Stents Respiratory History: Reports: None Gastrointestinal History: Reports: Chronic Diarrhea, Gastritis, GERD, GI Bleed, Hemorrhoids, Other (See Below) Other Gastrointestinal History: duodenitis, , ulcers, umbilical hernia, tubular adenoma, polyps Genitourinary History: Reports: Prostate Disorder, Renal Calculus, Retention, Urinary, UTI, Recurrent PRINCIPAL DEVELOPER History: Reports: None Musculoskeletal History: Reports: Arthritis, Gout Neurological History: Reports: Other (See Below) Other Neuro History: dizziness Psychiatric History: Reports: None Endocrine/Metabolic History: Reports: Diabetes, Type II Hematologic History: Reports: Anemia Immunologic History: Reports: None Oncologic (Cancer) History: Reports: Prostate Dermatologic History: Reports: None - Past Surgical History Head Surgeries/Procedures: Reports: None HEENT Surgical History: Reports: Cataract Surgery, Tonsillectomy Musculoskeletal Surgical History: Reports: Hip Replacement Social & Family History - Family History Family Medical History: Noncontributory - Tobacco Use Smoking Status *Q: Never Smoker Second Hand Smoke Exposure: No - Caffeine Use Caffeine Use: Reports: None - Recreational Drug Use Recreational Drug Use: No - Living Situation & Occupation Living situation: Reports: , with Spouse ED ROS GENERAL - Review of Systems Review Of Systems: See Below Constitutional: Reports: No Symptoms HEENT: Reports: No Symptoms Respiratory: Reports: No Symptoms Cardiovascular: Reports: No Symptoms Endocrine: Reports: No Symptoms GI/Abdominal: Reports: Abdominal Pain, Nausea. Denies: Constipation, Diarrhea, Vomiting : Reports: No Symptoms Musculoskeletal: Reports: No Symptoms Skin: Reports: No Symptoms Neurological: Reports: No Symptoms Psychiatric: Reports: No Symptoms Hematologic/Lymphatic: Reports: No Symptoms ED EXAM, GI/ABD - Physical Exam Exam: See Below Exam Limited By: No Limitations General Appearance: Alert, No Apparent Distress Head: Atraumatic, Normocephalic Neck: Normal Inspection, Supple, Non-Tender, Full Range of Motion. No: Lymphadenopathy (L), Lymphadenopathy (R) Respiratory/Chest: No Respiratory Distress, Lungs Clear, Normal Breath Sounds GI/Abdominal Exam: Normal Bowel Sounds, Other (The distended he has looks like Possible mass left abdomen just inferior to the umbilicus suspicious for a periumbilical hernia no rigidity rebound or guarding noted) Back Exam: Normal Inspection. No: CVA Tenderness (L), CVA Tenderness (R) Extremities: Normal Inspection, No Pedal Edema Neurological: Alert, Oriented, Normal Cognition Course - Vital Signs Last Recorded V/S: Last Vital Signs Temp 35.5 C 09/14/19 01:04 Pulse 60 09/14/19 01:04 Resp 20 09/14/19 01:04 BP 172/72 H 09/14/19 01:04 Pulse Ox 99 09/14/19 01:04 - Orders/Labs/Meds Orders: Active Orders 24 hr Category Date Time Status EKG Documentation Completion [RC] STAT Care 09/14/19 01:57 Active Abdomen Pelvis w Cont [CT] Stat Exams 09/14/19 01:58 Taken CULTURE URINE [RM] Stat Lab 09/14/19 06:45 Ordered Lactated Ringers [Ringers, Lactated] 1,000 ml Med 09/14/19 02:00 Active IV ASDIRECTED Sodium Chloride 0.9% [Saline Flush] Med 09/14/19 02:59 Active 10 ml FLUSH ONETIME PRN Medication Orders Lactated Ringer's (Ringers, Lactated) 1,000 mls @ 125 mls/hr IV ASDIRECTED [place] Sodium Chloride (Saline Flush) 10 ml FLUSH ONETIME PRN PRN Reason: KEEP VEIN OPEN Last Admin: 09/14/19 03:36 Dose: 10 ml Labs: Laboratory Tests 09/14/19 09/14/19 09/14/19 Range/Units 01:14 01:14 03:51 WBC 12.55 H (4.23-9.07) K/mm3 RBC 4.28 L (4.63-6.08) M/mm3 Hgb 13.5 L (13.7-17.5) gm/dl Hct 40.5 (40.1-51.0) % MCV 94.6 H (79.0-92.2) fl MCH 31.5 (25.7-32.2) pg MCHC 33.3 (32.2-35.5) g/dl RDW Std Deviation 47.2 H (35.1-43.9) fL Plt Count 191 (163-337) K/mm3 MPV 9.7 (9.4-12.3) fl Neutrophils % (Manual) 73 H (40-60) % Band Neutrophils % 8 (0-10) % Lymphocytes % (Manual) 7 L (20-40) % Atypical Lymphs % 0 % Monocytes % (Manual) 10 (2-10) % Eosinophils % (Manual) 1 (0.8-7.0) % Basophils % (Manual) 1 (0.2-1.2) Toxic Granulation 1+ slight Platelet Estimate Adequate Plt Morphology Comment Normal Anisocytosis 2+ moderate Macrocytosis 1+ slight Ovalocytes 1+ slight RBC Morph Comment Not Reportable Sodium 139 (136-145) mEq/L Potassium 3.7 (3.5-5.1) mEq/L Chloride 101 (98-107) mEq/L Carbon Dioxide 28 (21-32) mEq/L Anion Gap 13.7 (5-15) BUN 36 H (7-18) mg/dL Creatinine 1.2 (0.7-1.3) mg/dL Est Cr Clr Drug Dosing 42.09 mL/min Estimated GFR (MDRD) 58 (>60) mL/min BUN/Creatinine Ratio 30.0 H (14-18) Glucose 264 H (83-115) mg/dL Calcium 9.8 (8.5-10.1) mg/dL Total Bilirubin 0.3 (0.2-1.0) mg/dL AST 18 (15-37) U/L ALT 40 (16-63) U/L Alkaline Phosphatase 121 H (46-116) U/L Troponin I < 0.017 (0.00-0.056) ng/mL Total Protein 7.5 (6.4-8.2) g/dl Albumin 3.9 (3.4-5.0) g/dl Globulin 3.6 gm/dL Albumin/Globulin Ratio 1.1 (1-2) Lipase 102 (73-393) U/L Urine Color Yellow (Yellow) Urine Appearance Slt cloudy H (Clear) Urine pH 5.5 (5.0-8.0) Ur Specific [place] 1.020 (1.005-1.030) Urine Protein 2+ H (Negative) Urine Glucose (UA) Trace H (Negative) Urine Ketones Negative (Negative) Urine Occult Blood 2+ H (Negative) Urine Nitrite Negative (Negative) Urine Bilirubin Negative (Negative) Urine Urobilinogen 0.2 (0.2-1.0) Ur Leukocyte Esterase 2+ H (Negative) Urine RBC 10-20 H (0-5) /hpf Urine WBC 20-30 H (0-5) /hpf Urine WBC Clumps Moderate (NOT SEEN) /hpf Ur Squamous Epith Cells 5-10 H (0-5) /hpf Urine Bacteria Few (FEW) /hpf Hyaline Casts 0-5 (0-5) /lpf Urine Mucus Moderate H (FEW) /hpf 09/14/ Range/Units 04:53 WBC (4.23-9.07) K/mm3 RBC (4.63-6.08) M/mm3 Hgb (13.7-17.5) gm/dl Hct (40.1-51.0) % MCV (79.0-92.2) fl MCH (25.7-32.2) pg MCHC (32.2-35.5) g/dl RDW Std Deviation (35.1-43.9) fL Plt Count (163-337) K/mm3 MPV (9.4-12.3) fl Neutrophils % (Manual) (40-60) % Band Neutrophils % (0-10) % Lymphocytes % (Manual) (20-40) % Atypical Lymphs % % Monocytes % (Manual) (2-10) % Eosinophils % (Manual) (0.8-7.0) % Basophils % (Manual) (0.2-1.2) Toxic Granulation Platelet Estimate Plt Morphology Comment Anisocytosis Macrocytosis Ovalocytes RBC Morph Comment Sodium (136-145) mEq/L Potassium (3.5-5.1) mEq/L Chloride (98-107) mEq/L Carbon Dioxide (21-32) mEq/L Anion Gap (5-15) BUN (7-18) mg/dL Creatinine (0.7-1.3) mg/dL Est Cr Clr Drug Dosing mL/min Estimated GFR (MDRD) (>60) mL/min BUN/Creatinine Ratio (14-18) Glucose (83-115) mg/dL Calcium (8.5-10.1) mg/dL Total Bilirubin (0.2-1.0) mg/dL AST (15-37) U/L ALT (16-63) U/L Alkaline Phosphatase (46-116) U/L Troponin I (0.00-0.056) ng/mL Total Protein (6.4-8.2) g/dl Albumin (3.4-5.0) g/dl Globulin gm/dL Albumin/Globulin Ratio (1-2) Lipase (73-393) U/L Urine Color Light yellow (Yellow) Urine Appearance Clear (Clear) Urine pH 6.0 (5.0-8.0) Ur Specific [place] 1.015 (1.005-1.030) Urine Protein 1+ H (Negative) Urine Glucose (UA) Negative (Negative) Urine Ketones Negative (Negative) Urine Occult Blood 1+ H (Negative) Urine Nitrite Negative (Negative) Urine Bilirubin Negative (Negative) Urine Urobilinogen 0.2 (0.2-1.0) Ur Leukocyte Esterase 1+ H (Negative) Urine RBC 5-10 H (0-5) /hpf Urine WBC 5-10 H (0-5) /hpf Urine WBC Clumps Rare (NOT SEEN) /hpf Ur Squamous Epith Cells 0-5 (0-5) /hpf Urine Bacteria Few (FEW) /hpf Hyaline Casts (0-5) /lpf Urine Mucus Rare (FEW) /hpf Meds: Medications Generic Name Dose Route Start Last Admin Trade Name Sundar PRN Reason Stop Dose Admin Lactated Ringer's 1,000 mls @ 125 mls/hr 09/14/19 02:00 Ringers, Lactated IV ASDIRECTED [place] Sodium Chloride 10 ml 09/14/19 02:59 09/14/19 03:36 Saline Flush FLUSH 10 ml ONETIME PRN Administration KEEP VEIN OPEN Discontinued Medications Generic Name Dose Route Start Last Admin Trade Name Freq PRN Reason Stop Dose Admin Diatrizoate Meglum/Diatrizoate Sod 60 ml 09/14/19 02:59 09/14/19 03:35 Gastrografin 37% PO 09/14/19 03:00 60 ml ONETIME ONE Administration Lactated Ringer's 500 mls @ 999 mls/hr 09/14/19 02:00 09/14/19 02:22 Ringers, Lactated IV 09/14/19 02:30 999 mls/hr .BOLUS ONE Administration Iopamidol 100 ml 09/14/19 02:59 09/14/19 03:35 Isovue-300 (61%) IVPUSH 09/14/19 03:00 100 ml ONETIME ONE Administration Nitrofurantoin Macrocrystals 100 mg 09/14/19 06:44 Macrobid PO 09/14/19 06:45 ONETIME ONE Ondansetron HCl 4 mg 09/14/19 01:21 09/14/19 01:23 Zofran IVPUSH 09/14/19 01:22 4 mg ONETIME ONE Administration Ondansetron HCl Confirm 09/14/19 01:20 09/14/19 01:23 Zofran Administered 09/14/19 01:21 Not Given Dose 4 mg .ROUTE .STK-MED ONE Ondansetron HCl 4 mg 09/14/19 05:23 09/14/19 05:31 Zofran Odt PO 09/14/19 05:24 4 mg ONETIME ONE Administration - Re-Assessments/Exams Free Text/Narrative Re-Assessment/Exam: 09/14/19 05:33 Patient felt better after some Zofran this helped significantly with the cramping. I went ahead and ordered a CT with what I thought was a abdominal wall hernia. But this did not reveal that with incidental findings were a solid mass noted in the right kidney at 2.7 cm this is increased since the prior study in October 2015 he'll need to follow-up with his urologist for this who I believe is watching this. He's got some cholelithiasis without evidence of cholecystitis and he has a 15 mm stone in the right kidney lower pole nonobstructing at this time. His first urinalysis was fairly contaminated he declined catheter specimen we attempted another urinalysis awaiting results at this time Departure - Departure Time of Disposition: 06:46 Disposition: Home, Self-Care 01 Clinical Impression: Nausea, Abdominal cramps, Urinary tract infection - Discharge Information Prescriptions: Nitrofurantoin Monohyd/M-Cryst [Macrobid 100 mg Capsule] 100 mg PO Q12H #9 capsule Ondansetron [Zofran ODT] 4 mg PO Q6H PRN #8 tab.dis PRN Reason: Nausea Instructions: Nausea, Adult Referrals: Manuel Burgos MD [Primary Care Provider] - Forms: ED Department Discharge Additional Instructions: Return to the emergency room with any questions problems or worsening symptoms. Use the Zofran as needed for the nausea. Follow-up with your regular physician on Sunday if possible, sooner if needed The antibiotics as directed Sepsis Event Note - Evaluation Sepsis Screening Result: No Definite Risk - Focused Exam Vital Signs: Vital Signs Temp Pulse Resp BP Pulse Ox 09/14/19 01:04 35.5 C 60 20 172/72 H 99 Date Exam was Performed: 09/14/19 Time Exam was Performed: 06:46 - My Orders Last 24 Hours: My Active Orders 09/14/19 01:57 EKG Documentation Completion [RC] STAT 09/14/19 01:58 Abdomen Pelvis w Cont [CT] Stat 09/14/19 02:00 Lactated Ringers [Ringers, Lactated] 1,000 ml IV ASDIRECTED 09/14/19 02:59 Sodium Chloride 0.9% [Saline Flush] 10 ml FLUSH ONETIME PRN 09/14/19 06:45 CULTURE URINE [RM] Stat - Assessment/Plan Last 24 Hours: My Active Orders 09/14/19 01:57 EKG Documentation Completion [RC] STAT 09/14/19 01:58 Abdomen Pelvis w Cont [CT] Stat 09/14/19 02:00 Lactated Ringers [Ringers, Lactated] 1,000 ml IV ASDIRECTED 09/14/19 02:59 Sodium Chloride 0.9% [Saline Flush] 10 ml FLUSH ONETIME PRN 09/14/19 06:45 CULTURE URINE [RM] Stat
[2019-09-14] MEDS ORDERED: Ondansetron 4 MG/2 ML SDV ONE (01:20)
[2019-09-14] MEDS ORDERED: Ondansetron 4 MG/2 ML SDV IVPUSH ONE (01:21)
[2019-09-14] MEDS ORDERED: Lactated Ringers 500 ML IV ONE (02:00)
[2019-09-14] MEDS ORDERED: Lactated Ringers 1,000 ML IV SCH (02:00)
[2019-09-14] MEDS ORDERED: Diatrizoate Meglumine/Diatrizoate Sodium 37% 120 ML Bottle PO ONE (02:59)
[2019-09-14] MEDS ORDERED: Sodium Chloride 0.9% 10 ML Syringe FLUSH PRN (02:59)
[2019-09-14] MEDS ORDERED: Iopamidol 612 MG/ML 100 ML Bottle IVPUSH ONE (02:59)
[2019-09-14] MEDS ORDERED: Ondansetron 4 MG Tab.DIS PO ONE (05:23)
[2019-09-14] MEDS ORDERED: Nitrofurantoin Monohydrate/Macrocrystalline 100 MG Cap PO ONE (06:44)
--- NOTE | 2019-09-15 11:43 | CT ---
CT abdomen and pelvis Technique: Multiple axial sections were obtained from above the dome of the diaphragm inferiorly through the pubic symphysis. Intravenous contrast was utilized. Oral contrast is also noted. Delayed images were obtained from above the dome of the diaphragm inferiorly through the pubic symphysis. Comparison: Previous CT abdomen and pelvis exam of 10/04/15. Findings: Abnormality is noted within the mid to lower right kidney. This appears to be solid and measures approximately 2.5 cm in size. This finding is seen on prior exam in retrospect measuring about 2.0 cm. This slight increase in size makes this suspicious for low-grade renal cell carcinoma. Cortical cysts are noted within both kidneys. Parapelvic cysts are also present. Nonobstructing stone is noted within the inferior right kidney measuring about 1.5 cm. No ureteral dilatation is seen. Surgical clips are seen from previous cholecystectomy. Slight atelectasis is seen posteriorly within both lung bases. Liver shows a lesion within the posterior right lobe. This shows peripheral clumping of enhancement and is felt compatible with hemangioma. Spleen appears within normal limits. Small hiatal hernia is noted. Adrenal glands show no nodule. Pancreas is within normal limits. Gallbladder contains no calcified gallstones. Aorta shows atherosclerotic calcification which continues into the iliac vessels. No retroperitoneal adenopathy or mesenteric abnormalities are seen. Minimal densities are noted within the gallbladder possibly due to slight gallstones. Appendix is seen and is normal in size. No pelvic mass or adenopathy is seen. Mild increased fluid and stool noted within the colon. No small bowel dilatation is identified. Delayed images show contrast within both distal ureters and within the bladder. No evidence of ureteral obstruction is seen. Artifact is noted within the pelvis from bilateral hip prosthesis. Bone window settings were reviewed which show scattered degenerative change within the spine. Small fat-containing umbilical hernia is noted. Impression: 1. Solid appearing abnormality within the mid to lower right kidney measuring around 2.5 cm and increasing in size from prior study of 2.0 cm (seen in retrospect on prior exam). As mentioned above, this slight interval growth makes this suspicious for low-grade renal cell carcinoma. 2. Cortical and parapelvic cysts within both kidneys. No ureteral obstruction is seen with contrast noted within the bladder. 3. Other findings as described above which are believed to be incidental. Diagnostic code #9 This report was dictated in [place] Standard Time I agree with preliminary report from [facility], report finalized on 09/14/19, 5:11 AM Central Time
== END 2019-09-14 07:18 | disposition home or self-care (01) ==
LOC: JD.ED 00:52
DX: N39.0 Urinary tract infection, site not specified (principal); R11.0 Nausea; I10 Essential (primary) hypertension; E11.9 Type 2 diabetes mellitus without complications; E78.00 Pure hypercholesterolemia, unspecified; I25.10 Atherosclerotic heart disease of native coronary artery without angina pectoris; K21.9 Gastro-esophageal reflux disease without esophagitis; M10.9 Gout, unspecified; Z88.8 Allergy status to other drugs, medicaments and biological substances; Z88.5 Allergy status to narcotic agent; Z79.899 Other long term (current) drug therapy
CPT/HCPCS: 36415; 74177; 80053; 81001; 83690; 84484; 85007; 85027; 87086; 93005; 96361; 96374; 99284; A9270; J2405; J7120; Q9963; Q9967; 87088; 87184; 93010; 99283

== ENCOUNTER 2021-02-26 17:39 | Emergency (ER) | payer MEDICARE, OTHER ==
--- NOTE | 2021-02-26 18:26 | EDM.PDOC ---
ED HPI GENERAL MEDICAL PROBLEM - General Chief Complaint: Upper Extremity Injury/Pain Stated Complaint: FALL,ABDOMINAL AND ARM RT INJURY Time Seen by Provider: 02/26/21 17:53 Source of Information: Reports: Patient History Limitations: Reports: No Limitations - History of Present Illness INITIAL COMMENTS - FREE TEXT/NARRATIVE: The patient presents with right wrist and left shoulder pain. [place] and it [place] muddy. He slipped and landed facing forward. He did not hit his head or hurt his neck. He has pain and swelling to his right wrist. He also has some pain to his left shoulder. He has no headache, chest pain, or abdominal pain. He has no pain in his legs. He is right handed. Onset: Sudden Duration: Hour(s): Location: Reports: Upper Extremity, Left (shoulder), Upper Extremity, Right (wrist) Quality: Reports: Sharp Severity: Moderate Improves with: Reports: Immobilization Worsens with: Reports: Movement Context: Reports: Trauma (fell) Associated Symptoms: Reports: No Other Symptoms Right Wrist Pain Score (Numeric/FACES): 9 - Related Data Allergies Allergy/AdvReac Type Severity Reaction Status Date / Time terazosin Allergy Cannot Verified 02/26/21 17:52 Remember atorvastatin calcium AdvReac Nausea and Verified 02/26/21 17:52 [From Lipitor] Vomiting morphine AdvReac Hallucinati Verified 02/26/21 17:52 ons Home Meds: Home Meds allopurinoL [Allopurinol] 50 mg PO DAILY 10/02/14 [History] Finasteride 5 mg PO DAILY 07/31/16 [History] Omeprazole 20 mg PO DAILY #90 cap.cr 08/01/16 [Rx] sitaGLIPtin Phosphate [Januvia] 50 mg PO DAILY 09/21/17 [History] Acetaminophen [Tylenol] 02/26/21 [History] Alfuzosin HCl [Alfuzosin HCl ER] 10 mg PO 02/26/21 [History] Calcium Carbonate [Calcium] 600 mg PO ASDIRECTED 02/26/21 [History] Cholecalciferol (Vitamin D3) [Vitamin D3] 1 tab PO DAILY 02/26/21 [History] Clobetasol [Clobetasol Propionate 0.05%] 30 gm TOP BID 02/26/21 [History] Diclofenac Sodium [Voltaren 1% Gel] 1 applic TOP QID PRN 02/26/21 [History] Donepezil [Aricept] 5 mg PO BEDTIME 02/26/21 [History] Enalapril [Vasotec] 5 mg PO DAILY 02/26/21 [History] Fish Oil/[place]-3 Fatty Acids [Fish Oil 1,000 MG] 1 tab PO ASDIRECTED 02/26/21 [History] Lidocaine 4% [LMX 4] 02/26/21 [History] Loperamide [Imodium] 4 mg PO Q6H 02/26/21 [History] Magnesium 1 tab PO DAILY 02/26/21 [History] Potassium Gluconate [Potassium] 1 tab PO DAILY 02/26/21 [History] Protein Supplement [Protein Powder] 02/26/21 [History] Sertraline [Zoloft] 25 mg PO ASDIRECTED 02/26/21 [History] Sulfamethoxazole/Trimethoprim [Bactrim 400-80 MG] 1 each PO 02/26/21 [History] Past Medical History HEENT History: Reports: Cataract, Impaired Vision Other HEENT History: wears eyeglasses Cardiovascular History: Reports: CAD, High Cholesterol, Hypertension, Stents Respiratory History: Reports: None Gastrointestinal History: Reports: Chronic Diarrhea, Gastritis, GERD, GI Bleed, Hemorrhoids, Other (See Below) Other Gastrointestinal History: duodenitis, , ulcers, umbilical hernia, tubular adenoma, polyps Genitourinary History: Reports: Prostate Disorder, Renal Calculus, Retention, Urinary, UTI, Recurrent [employer] COMPLIANCE SPECIALIST History: Reports: None Musculoskeletal History: Reports: Arthritis, Gout Neurological History: Reports: Other (See Below) Other Neuro History: dizziness Psychiatric History: Reports: None Endocrine/Metabolic History: Reports: Diabetes, Type II Hematologic History: Reports: Anemia Immunologic History: Reports: None Oncologic (Cancer) History: Reports: Prostate Dermatologic History: Reports: None - Infectious Disease History Infectious Disease History: Reports: Chicken Pox, Measles, Mumps, Rubella - Past Surgical History Head Surgeries/Procedures: Reports: None HEENT Surgical History: Reports: Cataract Surgery, Tonsillectomy GI Surgical History: Reports: Colonoscopy, EGD Musculoskeletal Surgical History: Reports: Hip Replacement Other Musculoskeletal Surgeries/Procedures:: bilateral hip replacements Social & Family History - Family History Family Medical History: No Pertinent Family History - Tobacco Use Tobacco Use Status *Q: Never Tobacco User - Caffeine Use Caffeine Use: Reports: Coffee - Recreational Drug Use Recreational Drug Use: No - Living Situation & Occupation Living situation: Reports: , with Spouse Review of Systems - Review of Systems Review Of Systems: See Below Constitutional: Reports: No Symptoms Eyes: Reports: No Symptoms Ears: Reports: No Symptoms Nose: Reports: No Symptoms Mouth/Throat: Reports: No Symptoms Respiratory: Reports: No Symptoms Cardiovascular: Reports: No Symptoms GI/Abdominal: Reports: No Symptoms Genitourinary: Reports: No Symptoms Musculoskeletal: Reports: Other (right wrist pain and left shoulder pain) ED EXAM, GENERAL - Physical Exam Exam: See Below Exam Limited By: No Limitations General Appearance: Alert, No Apparent Distress Ears: Normal External Exam Nose: Normal Inspection Head: Atraumatic, Normocephalic Neck: Normal Inspection Respiratory/Chest: No Respiratory Distress, Lungs Clear, Normal Breath Sounds Cardiovascular: Regular Rate, Rhythm, No Edema, No Murmur GI/Abdominal: Soft, Non-Tender, No Organomegaly, No Mass Back Exam: Normal Inspection Extremities: Other (Pain upon palpation with edema and ecchymosis to the right wrist. Pain upon palpation to the left shoulder with good sensation and pulses.) Course - Vital Signs Last Recorded V/S: Last Vital Signs Temp 97.1 F 02/26/21 18:08 Pulse 71 02/26/21 18:08 Resp 18 02/26/21 18:08 BP 134/53 L 02/26/21 18:08 Pulse Ox 98 02/26/21 18:08 - Orders/Labs/Meds Orders: Active Orders 24 hr Category Date Time Status Shoulder Comp Lt [CR] Stat Exams 02/26/21 18:16 Taken Wrist Comp Min 3V Rt [CR] Stat Exams 02/26/21 18:15 Ordered - Re-Assessments/Exams Free Text/Narrative Re-Assessment/Exam: 02/26/21 18:25 I ordered an x-ray of his wrist and shoulder. 02/26/21 19:22 His shoulder x-ray looks good. The x-ray of his wrist shows a proximal nondisplaced right radius fracture. I will put him in preformed velcro wrist splint and have him follow up with Dr Hernandez. Departure - Departure Time of Disposition: 19:25 Disposition: Home, Self-Care 01 Condition: Good Clinical Impression: Fall Qualifiers: Encounter type: initial encounter Qualified Code(s): W19.XXXA - Unspecified fall, initial encounter Sprain of left shoulder Qualifiers: Encounter type: initial encounter Shoulder sprain type: unspecified sprain Qualified Code(s): S43.402A - Unspecified sprain of left shoulder joint, initial encounter Distal radius fracture, right Qualifiers: Encounter type: initial encounter Fracture type: closed Fracture morphology: other fracture Qualified Code(s): S52.591A - Other fractures of lower end of right radius, initial encounter for closed fracture - Discharge Information *PRESCRIPTION DRUG MONITORING PROGRAM REVIEWED*: Not Applicable *COPY OF PRESCRIPTION DRUG MONITORING REPORT IN PATIENT ELIZABETH: Not Applicable Referrals: Manuel Burgos MD [Primary Care Provider] - Sagar Hernandez MD [Physician] - 1 Week Forms: ED Department Discharge Additional Instructions: Ice your wrist for 15 minutes 3 times per day. Take tylenol or ibuprofen as needed for pain. If that does not help, try a hydrocodone. Follow up with Dr Hernandez. Please return if you are worse. Sepsis Event Note (ED) - Evaluation Sepsis Screening Result: No Definite Risk - Focused Exam Vital Signs: Vital Signs Temp Pulse Resp BP Pulse Ox 02/26/21 18:08 97.1 F 71 18 134/53 L 98 - My Orders Last 24 Hours: My Active Orders 02/26/21 18:15 Wrist Comp Min 3V Rt [CR] Stat 02/26/21 18:16 Shoulder Comp Lt [CR] Stat - Assessment/Plan Last 24 Hours: My Active Orders 02/26/21 18:15 Wrist Comp Min 3V Rt [CR] Stat 02/26/21 18:16 Shoulder Comp Lt [CR] Stat
[2021-02-26 18:31] VITALS: BP 134/53; PULSE 71
--- NOTE | 2021-02-27 13:06 | CR ---
Left shoulder: 3 views left shoulder were obtained. Comparison: No prior left shoulder study is available. Mild degenerative change is seen within the acromioclavicular joint. Minimal inferior projection off the distal clavicle is seen as well as mild superior spurring. Glenohumeral joint shows mild degenerative change. Slight cystic change is noted within the base of the greater tuberosity. Impression: 1. Mild degenerative change as noted above. 2. No acute fracture or dislocation is appreciated. Diagnostic code #2
--- NOTE | 2021-02-27 13:06 | CR ---
Right wrist: 3 views of the right wrist are obtained. Comparison: No prior wrist study is available. Fracture is noted off the base of the radial styloid process. Possible fracture also noted more towards the ulnar side of the mid distal articular radius. Soft tissue swelling is noted. Small soft tissue foreign body is noted within the mid and anterior wrist, uncertain if this is old or acute. Two small foreign bodies are seen within the soft tissues at the level of the first metacarpal. Degenerative change is noted within the MCP joints of the fingers. No additional fracture or other bony abnormality is appreciated. Impression: 1. Distal radial fracture which appears to be in 2 locations. No significant displacement is appreciated. 2. Soft tissue swelling. 3. Degenerative change as noted above. Several small foreign bodies are noted and uncertain if these are acute or old. Diagnostic code #3
== END 2021-02-26 19:40 | disposition home or self-care (01) ==
LOC: JD.ED 17:39
DX: S52.591A Other fractures of lower end of right radius, initial encounter for closed fracture (principal); S43.402A Unspecified sprain of left shoulder joint, initial encounter; I25.10 Atherosclerotic heart disease of native coronary artery without angina pectoris; E78.00 Pure hypercholesterolemia, unspecified; I10 Essential (primary) hypertension; K21.9 Gastro-esophageal reflux disease without esophagitis; N42.9 Disorder of prostate, unspecified; M10.9 Gout, unspecified; E11.9 Type 2 diabetes mellitus without complications; Z95.5 Presence of coronary angioplasty implant and graft; Z79.899 Other long term (current) drug therapy; Z79.84 Long term (current) use of oral hypoglycemic drugs; Z88.8 Allergy status to other drugs, medicaments and biological substances; Z88.5 Allergy status to narcotic agent; W01.0XXA Fall on same level from slipping, tripping and stumbling without subsequent striking against object, initial encounter
CPT/HCPCS: 73030-26-LT; 73030-LT; 73110-26-RT; 73110-RT; 99283; 99283-25

== ENCOUNTER 2021-03-01 18:19 | Emergency (ER) | payer MEDICARE, OTHER ==
[2021-03-01 19:01] VITALS: BP 161/65; PULSE 81
--- NOTE | 2021-03-01 19:19 | EDM.PDOC ---
ED HPI GENERAL MEDICAL PROBLEM - General Chief Complaint: Upper Extremity Injury/Pain Stated Complaint: wrist injury Time Seen by Provider: 03/01/21 19:06 Source of Information: Reports: Patient, RN Notes Reviewed - History of Present Illness INITIAL COMMENTS - FREE TEXT/NARRATIVE: 86 yr old male comes in with concern about swelling and bruising R hand and wrist S/P fall and fx distal radius 3 days ago. He was eval and treated with wrist splint this ED 3 days ago, see that record for details. He is concerned about the amt of swelling that he has and now some mild bruising dorsal wrist and hand today as well. He did have some L shoulder pain as well but that is now much better. - Related Data Allergies Allergy/AdvReac Type Severity Reaction Status Date / Time terazosin Allergy Cannot Verified 03/01/21 19:02 Remember atorvastatin calcium AdvReac Nausea and Verified 03/01/21 19:02 [From Lipitor] Vomiting morphine AdvReac Hallucinati Verified 03/01/21 19:02 ons Home Meds: Home Meds allopurinoL [Allopurinol] 50 mg PO DAILY 10/02/14 [History] Finasteride 5 mg PO DAILY 07/31/16 [History] Omeprazole 20 mg PO DAILY #90 cap.cr 08/01/16 [Rx] sitaGLIPtin Phosphate [Januvia] 50 mg PO DAILY 09/21/17 [History] Acetaminophen [Tylenol] 02/26/21 [History] Alfuzosin HCl [Alfuzosin HCl ER] 10 mg PO 02/26/21 [History] Calcium Carbonate [Calcium] 600 mg PO ASDIRECTED 02/26/21 [History] Cholecalciferol (Vitamin D3) [Vitamin D3] 1 tab PO DAILY 02/26/21 [History] Clobetasol [Clobetasol Propionate 0.05%] 30 gm TOP BID 02/26/21 [History] Diclofenac Sodium [Voltaren 1% Gel] 1 applic TOP QID PRN 02/26/21 [History] Donepezil [Aricept] 5 mg PO BEDTIME 02/26/21 [History] Enalapril [Vasotec] 5 mg PO DAILY 02/26/21 [History] Fish Oil/Spade-3 Fatty Acids [Fish Oil 1,000 MG] 1 tab PO ASDIRECTED 02/26/21 [History] Lidocaine 4% [LMX 4] 02/26/21 [History] Loperamide [Imodium] 4 mg PO Q6H 02/26/21 [History] Magnesium 1 tab PO DAILY 02/26/21 [History] Potassium Gluconate [Potassium] 1 tab PO DAILY 02/26/21 [History] Protein Supplement [Protein Powder] 02/26/21 [History] Sertraline [Zoloft] 25 mg PO ASDIRECTED 02/26/21 [History] Sulfamethoxazole/Trimethoprim [Bactrim 400-80 MG] 1 each PO 02/26/21 [History] Past Medical History HEENT History: Reports: Cataract, Impaired Vision Other HEENT History: wears eyeglasses Cardiovascular History: Reports: CAD, High Cholesterol, Hypertension, Stents Respiratory History: Reports: None Gastrointestinal History: Reports: Chronic Diarrhea, Gastritis, GERD, GI Bleed, Hemorrhoids, Other (See Below) Other Gastrointestinal History: duodenitis, , ulcers, umbilical hernia, tubular adenoma, polyps Genitourinary History: Reports: Prostate Disorder, Renal Calculus, Retention, Urinary, UTI, Recurrent 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 Musculoskeletal History: Reports: Arthritis, Gout Neurological History: Reports: Other (See Below) Other Neuro History: dizziness Psychiatric History: Reports: None Endocrine/Metabolic History: Reports: Diabetes, Type II Hematologic History: Reports: Anemia Immunologic History: Reports: None Oncologic (Cancer) History: Reports: Prostate Dermatologic History: Reports: None - Infectious Disease History Infectious Disease History: Reports: Chicken Pox, Measles, Mumps, Rubella - Past Surgical History Head Surgeries/Procedures: Reports: None HEENT Surgical History: Reports: Cataract Surgery, Tonsillectomy GI Surgical History: Reports: Colonoscopy, EGD Musculoskeletal Surgical History: Reports: Hip Replacement Other Musculoskeletal Surgeries/Procedures:: bilateral hip replacements Social & Family History - Family History Family Medical History: No Pertinent Family History - Tobacco Use Tobacco Use Status *Q: Never Tobacco User - Caffeine Use Caffeine Use: Reports: None - Recreational Drug Use Recreational Drug Use: No - Living Situation & Occupation Living situation: Reports: , with Spouse Review of Systems - Review of Systems Review Of Systems: See Below Eyes: Reports: No Symptoms Ears: Reports: No Symptoms Respiratory: Denies: Shortness of Breath Cardiovascular: Denies: Chest Pain GI/Abdominal: Denies: Abdominal Pain, Nausea, Vomiting Musculoskeletal: Reports: Joint Pain (R wrist, mild) Neurological: Denies: Numbness, Tingling, Weakness ED EXAM, GENERAL - Physical Exam Exam: See Below General Appearance: Alert, No Apparent Distress Head: Atraumatic Neck: Supple Respiratory/Chest: No Respiratory Distress, Lungs Clear, Normal Breath Sounds Cardiovascular: Regular Rate, Rhythm Extremities: Other (There is swelling and bruising of R wrist and dorsal hand as well. no visible deformity, erythema present distal R forearm) Neurological: Alert, Oriented, No Motor/Sensory Deficits Skin Exam: Warm, Dry Course - Vital Signs Last Recorded V/S: Last Vital Signs Temp 97.1 F 03/01/21 18:56 Pulse 81 03/01/21 18:56 Resp 18 03/01/21 18:56 BP 161/65 H 03/01/21 18:56 Pulse Ox 98 03/01/21 18:56 - Re-Assessments/Exams Free Text/Narrative Re-Assessment/Exam: 03/02/21 01:31 I did review his Xrays of 3 days ago and Radiologist report. He has a nondisplaced fx distal radius. He has an Ortho appt. for this coming Sunday 3 days from now. Discharge instr. as documented. Departure - Departure Time of Disposition: 19:18 Disposition: Home, Self-Care 01 Clinical Impression: Wrist fracture, right Qualifiers: Encounter type: subsequent encounter Fracture type: closed Fracture healing: with routine healing Qualified Code(s): S62.101D - Fracture of unspecified carpal bone, right wrist, subsequent encounter for fracture with routine healing - Discharge Information Instructions: Wrist Fracture Treated With Immobilization Referrals: Manuel Burgos MD [Primary Care Provider] - Forms: ED Department Discharge Additional Instructions: Elevate R hand and wrist above your chest as much as possible. Continue with R wrist splint and intermitent ice packs. See Dr Hernandez Sunday as planned. Sepsis Event Note (ED) - Evaluation Sepsis Screening Result: No Definite Risk - Focused Exam Vital Signs: Vital Signs Temp Pulse Resp BP Pulse Ox 03/01/21 18:56 97.1 F 81 18 161/65 H 98
== END 2021-03-01 19:50 | disposition home or self-care (01) ==
LOC: JD.ED 18:19
DX: S52.591D Other fractures of lower end of right radius, subsequent encounter for closed fracture with routine healing (principal); I25.10 Atherosclerotic heart disease of native coronary artery without angina pectoris; E78.00 Pure hypercholesterolemia, unspecified; I10 Essential (primary) hypertension; E11.9 Type 2 diabetes mellitus without complications; K21.9 Gastro-esophageal reflux disease without esophagitis; Z95.5 Presence of coronary angioplasty implant and graft; Z79.899 Other long term (current) drug therapy; Z88.6 Allergy status to analgesic agent; Z88.8 Allergy status to other drugs, medicaments and biological substances; W18.39XD Other fall on same level, subsequent encounter
CPT/HCPCS: 99282; 99283

== ENCOUNTER 2021-05-24 17:23 | Emergency (ER) | payer MEDICARE, OTHER ==
[2021-05-24] MEDS ORDERED: Acetaminophen/HYDROcodone 325-5 MG Tab PO ONE (17:40)
[2021-05-24 17:41] VITALS: BP 144/59; PULSE 68
--- NOTE | 2021-05-24 19:34 | EDM.PDOC ---
ED HPI GENERAL MEDICAL PROBLEM - General Chief Complaint: Chest Pain Stated Complaint: RIB PAIN AND SOB FROM FALL Time Seen by Provider: 05/24/21 17:36 Source of Information: Reports: Patient History Limitations: Reports: No Limitations - History of Present Illness INITIAL COMMENTS - FREE TEXT/NARRATIVE: The patient presents with right sided chest pain. He was out using his garden hose today and he tripped and fell and landed on the right chest area. He has pain when taking a deep breath. He says he can feel something when he pushes. He did not hit his head or hurt his neck. He has no shortness of breath or abdominal pain. Onset: Sudden Duration: Minutes: Location: Reports: Chest Quality: Reports: Sharp Severity: Moderate Improves with: Reports: Immobilization Worsens with: Reports: Movement Context: Reports: Trauma (fell) Associated Symptoms: Reports: Chest Pain. Denies: Cough, Fever/Chills, Headaches, Nausea/Vomiting, Shortness of Breath Right Chest Pain Score (Numeric/FACES): 7 - Related Data Allergies Allergy/AdvReac Type Severity Reaction Status Date / Time terazosin Allergy Cannot Verified 05/24/21 17:44 Remember morphine AdvReac Hallucinati Verified 05/24/21 17:44 ons Home Meds: Home Meds allopurinoL [Allopurinol] 50 mg PO DAILY 10/02/14 [History] Finasteride 5 mg PO DAILY 07/31/16 [History] Omeprazole 20 mg PO DAILY #90 cap.cr 08/01/16 [Rx] sitaGLIPtin Phosphate [Januvia] 50 mg PO DAILY 09/21/17 [History] Acetaminophen [Tylenol] 02/26/21 [History] Alfuzosin HCl [Alfuzosin HCl ER] 10 mg PO 02/26/21 [History] Calcium Carbonate [Calcium] 600 mg PO ASDIRECTED 02/26/21 [History] Cholecalciferol (Vitamin D3) [Vitamin D3] 1 tab PO DAILY 02/26/21 [History] Clobetasol [Clobetasol Propionate 0.05%] 30 gm TOP BID 02/26/21 [History] Diclofenac Sodium [Voltaren 1% Gel] 1 applic TOP QID PRN 02/26/21 [History] Donepezil [Aricept] 5 mg PO BEDTIME 02/26/21 [History] Enalapril [Vasotec] 5 mg PO DAILY 02/26/21 [History] Fish Oil/Cougar-3 Fatty Acids [Fish Oil 1,000 MG] 1 tab PO ASDIRECTED 02/26/21 [History] Lidocaine 4% [LMX 4] 02/26/21 [History] Loperamide [Imodium] 4 mg PO Q6H 02/26/21 [History] Magnesium 1 tab PO DAILY 02/26/21 [History] Potassium Gluconate [Potassium] 1 tab PO DAILY 02/26/21 [History] Protein Supplement [Protein Powder] 02/26/21 [History] Sertraline [Zoloft] 25 mg PO ASDIRECTED 02/26/21 [History] Sulfamethoxazole/Trimethoprim [Bactrim 400-80 MG] 1 each PO 02/26/21 [History] Hydrocodone/Acetaminophen [Hydrocodone-Acetamin 5-325 mg] 1 each PO Q6H PRN #15 tablet 05/24/21 [Rx] Past Medical History HEENT History: Reports: Cataract, Impaired Vision Other HEENT History: wears eyeglasses Cardiovascular History: Reports: CAD, High Cholesterol, Hypertension, Stents Respiratory History: Reports: None Gastrointestinal History: Reports: Chronic Diarrhea, Gastritis, GERD, GI Bleed, Hemorrhoids, Other (See Below) Other Gastrointestinal History: duodenitis, , ulcers, umbilical hernia, tubular adenoma, polyps Genitourinary History: Reports: Prostate Disorder, Renal Calculus, Retention, Urinary, UTI, Recurrent 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 Musculoskeletal History: Reports: Arthritis, Gout Neurological History: Reports: Other (See Below) Other Neuro History: dizziness Psychiatric History: Reports: None Endocrine/Metabolic History: Reports: Diabetes, Type II Hematologic History: Reports: Anemia Immunologic History: Reports: None Oncologic (Cancer) History: Reports: Prostate Dermatologic History: Reports: None - Infectious Disease History Infectious Disease History: Reports: Chicken Pox, Measles, Mumps, Rubella - Past Surgical History Head Surgeries/Procedures: Reports: None HEENT Surgical History: Reports: Cataract Surgery, Tonsillectomy GI Surgical History: Reports: Colonoscopy, EGD Musculoskeletal Surgical History: Reports: Hip Replacement Other Musculoskeletal Surgeries/Procedures:: bilateral hip replacements Social & Family History - Family History Family Medical History: No Pertinent Family History - Tobacco Use Tobacco Use Status *Q: Never Tobacco User - Caffeine Use Caffeine Use: Reports: Coffee - Living Situation & Occupation Living situation: Reports: , with Spouse ED ROS GENERAL - Review of Systems Review Of Systems: See Below Constitutional: Reports: No Symptoms HEENT: Reports: No Symptoms Respiratory: Reports: No Symptoms Cardiovascular: Reports: Other (Chest pain) Endocrine: Reports: No Symptoms GI/Abdominal: Reports: No Symptoms : Reports: No Symptoms Musculoskeletal: Reports: No Symptoms ED EXAM, GENERAL - Physical Exam Exam: See Below Exam Limited By: No Limitations General Appearance: Alert, No Apparent Distress Ears: Normal External Exam Nose: Normal Inspection Head: Atraumatic, Normocephalic Neck: Normal Inspection, Supple, Non-Tender Respiratory/Chest: No Respiratory Distress, Lungs Clear, Normal Breath Sounds Cardiovascular: Regular Rate, Rhythm, No Edema, No Murmur, Other (Pain upon palpation to the right lateral chest) GI/Abdominal: Soft, Non-Tender, No Organomegaly, No Mass Back Exam: Normal Inspection Extremities: Normal Inspection Course - Vital Signs Last Recorded V/S: Last Vital Signs Temp 96.9 F 05/24/21 17:35 Pulse 68 05/24/21 17:35 Resp 18 05/24/21 17:35 BP 144/59 H 05/24/21 17:35 Pulse Ox 97 05/24/21 17:35 - Orders/Labs/Meds Orders: Active Orders 24 hr Category Date Time Status Incentive Spirometry [RT Incentive Spirometry] [RC] Care 05/24/21 19:22 Ordered ASDIRECTED Chest wo Cont [CT] Stat Exams 05/24/21 17:40 Taken Meds: Medications Discontinued Medications Generic Name Dose Route Start Last Admin Trade Name Sundar PRN Reason Stop Dose Admin Hydrocodone Bitart/Acetaminophen 1 tab 05/24/21 17:40 05/24/21 18:12 Acetaminophen/Hydrocodone 325-5 Mg Tab PO 05/24/21 17:41 1 tab ONETIME ONE Administration - Re-Assessments/Exams Free Text/Narrative Re-Assessment/Exam: 05/24/21 19:26 I ordered hydrocodone 5mg/325mg by mouth and a CT of his chest without contrast. His CT shows no fracture identified. No acute traumatic injury. Numerous incidental findings including possible right adrenal and right renal masses. 05/24/21 19:33 The patient is aware of the mass and his doctor is watching it. I will get him an incentive spirometer and something for pain. Departure - Departure Time of Disposition: 19:35 Disposition: Home, Self-Care 01 Condition: Good Clinical Impression: Soft tissue injury of right chest wall Fall Qualifiers: Encounter type: initial encounter Qualified Code(s): W19.XXXA - Unspecified fall, initial encounter Prescriptions: Hydrocodone/Acetaminophen [Hydrocodone-Acetamin 5-325 mg] 1 each PO Q6H PRN #15 tablet PRN Reason: Pain Referrals: Felipe Griffith MD [Primary Care Provider] - 3 Days Additional Instructions: Use the incentive spirometer 10 breaths every other hour while awake for 5 days. Take tylenol or motrin for pain. If that does not help, try the hydrocodone. Follow up with Dr Griffith. Please return if you are worse. Sepsis Event Note (ED) - Focused Exam Vital Signs: Vital Signs Temp Pulse Resp BP Pulse Ox 05/24/21 17:35 96.9 F 68 18 144/59 H 97 - My Orders Last 24 Hours: My Active Orders 05/24/21 17:40 Chest wo Cont [CT] Stat 05/24/21 19:22 Incentive Spirometry [RT Incentive Spirometry] [RC] ASDIRECTED - Assessment/Plan Last 24 Hours: My Active Orders 05/24/21 17:40 Chest wo Cont [CT] Stat 05/24/21 19:22 Incentive Spirometry [RT Incentive Spirometry] [RC] ASDIRECTED
--- NOTE | 2021-05-24 20:05 | CT ---
CT chest Technique: Multiple axial sections through the chest were obtained. Intravenous contrast was not utilized. Reconstructed coronal and sagittal images were obtained. Comparison: Prior CT abdomen and pelvis study of 09/14/19. Findings: Thoracic aorta shows atherosclerotic calcification. No aneurysm is seen. Coronary artery calcification is also noted which is fairly severe. No mediastinal adenopathy is seen. No pericardial thickening is seen. Mass measuring approximately 2.1 cm is seen within the right lobe of the liver which is noted on prior CT abdomen and pelvis study and most likely represents a hemangioma. Liver also shows diffuse decreased density compatible with fatty infiltration. Solid mass is noted within the right kidney which is not completely included and measures 3.[address] exam this measured 2.6 cm, this is compatible with renal cell carcinoma. Cysts are noted within the left kidney. Adrenal mass is noted measuring approximately 2.6 cm in size which is also an interval change from prior CT study. Left adrenal gland is normal. Lung window settings were reviewed which show slight increased density within both lung bases either due to atelectasis or scarring. No acute parenchymal process is otherwise seen within the lung parenchyma. Lung window settings were reviewed which show scattered degenerative change within the spine. No acute osseous abnormality is appreciated. Impression: 1. Right renal mass which is increasing in size from prior CT abdomen and pelvis study compatible with renal cell carcinoma. 2. Right adrenal mass is seen which is also an interval change from prior CT abdomen and pelvis study most likely representing metastasis. 3. Small liver abnormality is seen and is stable from prior CT study and most likely represents a hemangioma. 4. Other findings as noted above which are nonacute. Diagnostic code #9 I agree with preliminary report from [facility], finalized on 05/24/21, 7:46 PM of CDT, code 1
== END 2021-05-24 19:46 | disposition home or self-care (01) ==
LOC: JD.ED 17:23
DX: S29.9XXA Unspecified injury of thorax, initial encounter (principal); I25.10 Atherosclerotic heart disease of native coronary artery without angina pectoris; E78.00 Pure hypercholesterolemia, unspecified; I10 Essential (primary) hypertension; I25.2 Old myocardial infarction; K21.9 Gastro-esophageal reflux disease without esophagitis; E11.9 Type 2 diabetes mellitus without complications; Z79.899 Other long term (current) drug therapy; W01.0XXA Fall on same level from slipping, tripping and stumbling without subsequent striking against object, initial encounter
CPT/HCPCS: 71250; 99283; A9270

== ENCOUNTER 2021-06-17 10:01 | Emergency (ER) | payer MEDICARE, OTHER ==
--- NOTE | 2021-06-17 11:11 | EDM.PDOC ---
ED HPI GENERAL MEDICAL PROBLEM - General Chief Complaint: Neurological Problem Stated Complaint: GETS WOBBLY DAY GOES ON-SENT BY [facility] Time Seen by Provider: 06/17/21 11:06 Source of Information: Reports: Patient History Limitations: Reports: No Limitations - History of Present Illness INITIAL COMMENTS - FREE TEXT/NARRATIVE: 86-year-old male presents to the ED for evaluation of balance problems. He states some days are better than others and he can usually tell first thing in the morning when he is going to have a good day or bad day. Patient by history is experiencing intermittent vertigo symptoms making him walk a bit like a drunk at times. He states he will also intimately intermittently have a fall. He fell 3 weeks ago and bruised up his right ribs. He nearly fell again yesterday. Today he feels better. Of note he is a type II diabetic for many years and does have some peripheral neuropathy in his feet. Sugars have been running a bit higher than normal as of late often 150-180. Blood sugar is 180 in the department this morning. He denies headaches. He appreciates that there is a change in his visual acuity particular when his blood sugars are running higher vision is blurred. He denies feeling any palpitations or racing heart or true dizziness where he feels like he is going to pass out. He has a cane in his kitchen but he rarely uses a cane outside of the house which I believe he probably needs to start doing. Patient has bilateral significant hearing deficit and usually wears hearing aids but does not have them in today. He believes that the tinnitus is actually worse in both ears as of late indicating further deterioration of the 8th cranial nerve. 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 He appreciates that he has a very mildly impaired short-term memory. Of note one of his medication is Aricept. Patient has benign prostatic hyperplasia and is on multiple medications for this. He also has problems controlling his bowels in terms of urgency to defecate will occur with no warning and thus he has to wear depends at all times. This is been for several years. He has had no previous abdominal surgery. Onset: Gradual (Gradual problems with balance i.e. mild vertigo-like symptoms for the last couple of months.) Duration: Week(s):, Getting Worse, Waxing/Waning Location: Reports: Generalized (Vertigo symptoms with loss of balance causing near falls.) Quality: Reports: Other (Vertigo symptoms with loss of balance.) Severity: Moderate Improves with: Reports: None Worsens with: Reports: None (He has not found anything per se that makes things worse.) Context: Reports: Other (Balance problems appreciated with walking causing him to lose his balance and fall intermittently.). Denies: Activity, Exercise, Lifting, Sick Contact, Trauma Associated Symptoms: Denies: Confusion, Chest Pain, Cough, cough w sputum, Diaphoresis, Headaches, Loss of Appetite, Malaise, Nausea/Vomiting, Seizure, Shortness of Breath, Syncope, Weakness Treatments [employer]ICIAN: Reports: Other (see below) (He does not think there is been any changes to any of his medications as of late.) - Related Data Allergies Allergy/AdvReac Type Severity Reaction Status Date / Time terazosin Allergy Cannot Verified 06/17/21 10:25 Remember morphine AdvReac Hallucinati Verified 06/17/21 10:25 ons Home Meds: Home Meds allopurinoL [Allopurinol] 100 mg PO DAILY 10/02/14 [History] Finasteride 5 mg PO DAILY 07/31/16 [History] Omeprazole 20 mg PO DAILY #90 cap.cr 08/01/16 [Rx] sitaGLIPtin Phosphate [Januvia] 100 mg PO DAILY 09/21/17 [History] Alfuzosin HCl [Alfuzosin HCl ER] 10 mg PO DAILY 02/26/21 [History] Calcium Carbonate [Calcium] 600 mg PO DAILY 02/26/21 [History] Cholecalciferol (Vitamin D3) [Vitamin D3] 1 tab PO DAILY 02/26/21 [History] Clobetasol [Clobetasol Propionate 0.05%] 30 gm TOP BID 02/26/21 [History] Diclofenac Sodium [Voltaren 1% Gel] 1 applic TOP QID PRN 02/26/21 [History] Donepezil [Aricept] 5 mg PO BEDTIME 02/26/21 [History] Enalapril [Vasotec] 5 mg PO DAILY 02/26/21 [History] Fish Oil/[place]-3 Fatty Acids [Fish Oil 1,000 MG] 1 tab PO DAILY 02/26/21 [History] Lidocaine 4% [LMX 4] 1 appful TOP DAILY 02/26/21 [History] Loperamide [Imodium] 4 mg PO Q6H 02/26/21 [History] Magnesium 1 tab PO DAILY 02/26/21 [History] Potassium Gluconate [Potassium] 1 tab PO DAILY 02/26/21 [History] Protein Supplement [Protein Powder] 1 pack PO DAILY 02/26/21 [History] Sertraline [Zoloft] 25 mg PO DAILY 02/26/21 [History] Acetaminophen [Tylenol Arthritis Pain] 1 tab PO Q4H PRN 06/17/21 [History] Cholestyramine (With Sugar) [Questran Powder] 4 gm PO DAILY 06/17/21 [History] Multivitamin 1 each PO DAILY 06/17/21 [History] Triamcinolone Acetonide [Triamcinolone Acetonide 0.1% Crm] 1 appful TOP DAILY 06/17/21 [History] Past Medical History HEENT History: Reports: Cataract, Impaired Vision Other HEENT History: wears eyeglasses Cardiovascular History: Reports: CAD, High Cholesterol, Hypertension, Stents Respiratory History: Reports: None Gastrointestinal History: Reports: Chronic Diarrhea, Gastritis, GERD, GI Bleed, Hemorrhoids, Other (See Below) Other Gastrointestinal History: duodenitis, , ulcers, umbilical hernia, tubular adenoma, polyps Genitourinary History: Reports: Prostate Disorder, Renal Calculus, Retention, Urinary, UTI, Recurrent 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 History: Reports: None Musculoskeletal History: Reports: Arthritis, Gout Neurological History: Reports: Other (See Below) Other Neuro History: dizziness Psychiatric History: Reports: None Endocrine/Metabolic History: Reports: Diabetes, Type II Hematologic History: Reports: Anemia Immunologic History: Reports: None Oncologic (Cancer) History: Reports: Prostate Dermatologic History: Reports: None - Infectious Disease History Infectious Disease History: Reports: Chicken Pox, Measles, Mumps, Rubella - Past Surgical History Head Surgeries/Procedures: Reports: None HEENT Surgical History: Reports: Cataract Surgery, Tonsillectomy GI Surgical History: Reports: Colonoscopy, EGD Musculoskeletal Surgical History: Reports: Hip Replacement Other Musculoskeletal Surgeries/Procedures:: bilateral hip replacements Social & Family History - Family History Family Medical History: No Pertinent Family History - Tobacco Use Tobacco Use Status *Q: Never Tobacco User - Caffeine Use Caffeine Use: Reports: Coffee - Recreational Drug Use Recreational Drug Use: No - Living Situation & Occupation Living situation: Reports: , with Spouse ED ROS GENERAL - Review of Systems Review Of Systems: See Below Constitutional: Reports: Fatigue (Mild chronically), Weight Gain (He has been gaining a little weight as of lately.). Denies: Fever, Chills, Malaise, Decreased Appetite HEENT: Reports: Glasses (Previous cataract extractions and intraocular lens implants.), Vision Change (When his blood sugars are running higher.). Denies: Contact Lenses Respiratory: Reports: No Symptoms Cardiovascular: Reports: Blood Pressure Problem. Denies: Chest Pain, Claudication, Dyspnea on Exertion, Edema, Lightheadedness, Orthopnea, Palpitations Endocrine: Reports: Fatigue GI/Abdominal: Reports: Diarrhea (Notes much that he has diarrhea but he gets the sudden urge to defecate and loses control of his bowels intermittently. This has been problematic for many years.). Denies: Abdominal Pain, Decreased Appetite, Nausea, Vomiting : Reports: Frequency, Urgency, Other (Nocturia usually 4 times nightly. Known BPH and is followed by urology services in [place]) Musculoskeletal: Reports: Neck Pain, Shoulder Pain, Joint Pain (Knee sepsis at times.) Skin: Reports: No Symptoms Neurological: Reports: Numbness, Tingling (Both feet particularly all of his toes are numb due to peripheral neuropathy), Difficulty Walking (Due to being off balance at times.) Psychiatric: Reports: No Symptoms Hematologic/Lymphatic: Reports: No Symptoms Immunologic: Reports: No Symptoms ED EXAM, DIZZINESS - Physical Exam Exam: See Below Exam Limited By: No Limitations General Appearance: Alert, WD/WN, No Apparent Distress, Other (Temperature is 36.1 degrees heart rate is sinus bradycardia at 54/min respiratory is 18 with O2 sats of 99% room air BP was 172/70 it is subsequently 166/ 106 I am not sure this is accurate however.) Eye Exam: Bilateral Eye: Normal Inspection (Previous bilateral cataract extraction intraocular lens implants.), PERRL (No nystagmus) Ears: Normal TMs Throat/Mouth: Normal Inspection, Normal Lips, Normal Oropharynx, Other (Uvula is in the midline) Head Exam: Atraumatic, Normocephalic Neck: Normal Inspection, Limited Range of Motion (He has lost about 10 degrees lateral rotation and lateral flexion). No: Carotid Bruit, Lymphadenopathy (L), Lymphadenopathy (R), Thyromegaly Respiratory/Chest: No Respiratory Distress, Lungs Clear, Normal Breath Sounds, No Accessory Muscle Use Cardiovascular: Normal Peripheral Pulses, Regular Rate, Rhythm, No Edema, No Gallop, No Murmur GI/Abdominal: Normal Bowel Sounds, Soft, Non-Tender, No Organomegaly, No Mass, Pelvis Stable, Distended, Other (Mildly distended and slightly tympany to pe rcussion.). No: Guarding, Rigid, Rebound Neurological: Alert, Normal Mood/Affect, Normal Dorsiflexion, CN II-XII Intact, Normal Plantar Flexion, Normal Gait (Normal gait today.), No Motor/Sensory Deficits, Oriented x 3, Other (No pronator drift normal [id number] normal rapid alternating movements). No: Abnormal Finger to Nose DTR: 0: Achilles (R), Achilles (L), 1+: Bicep (R), Bicep (L), Patella (R), Patella (L) Back Exam: Normal Inspection, Decreased Range of Motion (Limited ability to forward flex with loss of 20 degrees forward flexion 10 degrees extension.). No: CVA Tenderness (L), CVA Tenderness (R) Extremities: Normal Inspection, Normal Range of Motion, Non-Tender, No Pedal Edema Psychiatric: Normal Affect, Normal Mood Skin Exam: Warm, Dry, Intact, Normal Color, No Rash #1 Interpretation EKG Date: 06/17/21 Time: 11:26 Rhythm: Other (Sinus bradycardia) Rate (Beats/Min): 52 (Frequent PVCs) [place]: Normal P-Wave: Enlarged (Consider left atrial hypertrophy) QRS: Other (Early R wave transition consider right ventricular appear to be versus septal hypertrophy pattern) ST-T: Other (Nonspecific T wave flattening leads I and aVL) QT: Normal EKG Interpretation Comments: Abnormal ECG Course - Vital Signs Last Recorded V/S: Last Vital Signs Temp 36.1 C 06/17/21 10:20 Pulse 60 06/17/21 12:21 Resp 20 06/17/21 12:21 BP 159/68 H 06/17/21 12:21 Pulse Ox 93 L 06/17/21 12:21 Orthostatic Blood Pressure [ 187/81 Supine] Orthostatic Blood Pressure [ 180/95 Sitting] Orthostatic Blood Pressure [ 159/68 Standing] - Orders/Labs/Meds Orders: Active Orders 24 hr Category Date Time Status Orthostatic Vital Signs [RC] ASDIRECTED Care 06/17/21 11:06 Active URINALYSIS W/MICROSCOPIC [UA W/MICROSCOPIC] [URIN] Stat Lab 06/17/21 12:24 Results Labs: Laboratory Tests 06/17/21 06/17/21 06/17/21 Range/Units 10:19 11:24 11:24 WBC 4.28 (4.23-9.07) K/mm3 RBC 3.92 L (4.63-6.08) M/mm3 Hgb 12.8 L (13.7-17.5) gm/dl Hct 37.3 L (40.1-51.0) % MCV 95.2 H (79.0-92.2) fl MCH 32.7 H (25.7-32.2) pg MCHC 34.3 (32.2-35.5) g/dl RDW Std Deviation 45.8 H (35.1-43.9) fL Plt Count 161 L (163-337) K/mm3 MPV 9.1 L (9.4-12.3) fl Neut % (Auto) 72.0 H (34.0-67.9) % Lymph % (Auto) 12.9 L (21.8-53.1) % [place] % (Auto) 11.4 (5.3-12.2) % Eos % (Auto) 3.3 (0.8-7.0) Baso % (Auto) 0.2 (0.1-1.2) % Neut # (Auto) 3.08 (1.78-5.38) K/mm3 Lymph # (Auto) 0.55 L (1.32-3.57) K/mm3 [place] # (Auto) 0.49 (0.30-0.82) K/mm3 Eos # (Auto) 0.14 (0.04-0.54) K/mm3 Baso # (Auto) 0.01 (0.01-0.08) K/mm3 ESR (0-15) mm/hr Sodium 135 L (136-145) mEq/L Potassium 4.0 (3.5-5.1) mEq/L Chloride 102 (98-107) mEq/L Carbon Dioxide 28 (21-32) mEq/L Anion Gap 9.0 (5-15) BUN 32 H (7-18) mg/dL Creatinine 0.9 (0.7-1.3) mg/dL Est Cr Clr Drug Dosing 54.15 mL/min Estimated GFR (MDRD) > 60 (>60) mL/min BUN/Creatinine Ratio 35.6 H (14-18) Glucose 184 H (70-99) mg/dL POC Glucose 180 H (70-99) mg/dL Hemoglobin A1c ( - 5.6) % Calcium 9.0 (8.5-10.1) mg/dL Magnesium 1.7 L (1.8-2.4) mg/dL Total Bilirubin 0.7 (0.2-1.0) mg/dL AST 15 (15-37) U/L ALT 31 (16-63) U/L Alkaline Phosphatase 126 H (46-116) U/L C-Reactive Protein <0.2 (<1.0) mg/dL NT-Pro-B Natriuret Pep (0-450) pg/mL Total Protein 6.7 (6.4-8.2) g/dl Albumin 3.5 (3.4-5.0) g/dl Globulin 3.2 gm/dL Albumin/Globulin Ratio 1.1 (1-2) TSH 3rd Generation 2.237 (0.358-3.74) uIU/mL Urine Color (Yellow) Urine Appearance (Clear) Urine pH (5.0-8.0) Ur Specific [place] (1.005-1.030) Urine Protein (Negative) Urine Glucose (UA) (Negative) Urine Ketones (Negative) Urine Occult Blood (Negative) Urine Nitrite (Negative) Urine Bilirubin (Negative) Urine Urobilinogen (0.2-1.0) Ur Leukocyte Esterase (Negative) 06/17/21 06/17/21 06/17/21 Range/Units 11:24 11:24 11:24 WBC (4.23-9.07) K/mm3 RBC (4.63-6.08) M/mm3 Hgb (13.7-17.5) gm/dl Hct (40.1-51.0) % MCV (79.0-92.2) fl MCH (25.7-32.2) pg MCHC (32.2-35.5) g/dl RDW Std Deviation (35.1-43.9) fL Plt Count (163-337) K/mm3 MPV (9.4-12.3) fl Neut % (Auto) (34.0-67.9) % Lymph % (Auto) (21.8-53.1) % [place] % (Auto) (5.3-12.2) % Eos % (Auto) (0.8-7.0) Baso % (Auto) (0.1-1.2) % Neut # (Auto) (1.78-5.38) K/mm3 Lymph # (Auto) (1.32-3.57) K/mm3 [place] # (Auto) (0.30-0.82) K/mm3 Eos # (Auto) (0.04-0.54) K/mm3 Baso # (Auto) (0.01-0.08) K/mm3 ESR 10 (0-15) mm/hr Sodium (136-145) mEq/L Potassium (3.5-5.1) mEq/L Chloride (98-107) mEq/L Carbon Dioxide (21-32) mEq/L Anion Gap (5-15) BUN (7-18) mg/dL Creatinine (0.7-1.3) mg/dL Est Cr Clr Drug Dosing mL/min Estimated GFR (MDRD) (>60) mL/min BUN/Creatinine Ratio (14-18) Glucose (70-99) mg/dL POC Glucose (70-99) mg/dL Hemoglobin A1c 8.3 H ( - 5.6) % Calcium (8.5-10.1) mg/dL Magnesium (1.8-2.4) mg/dL Total Bilirubin (0.2-1.0) mg/dL AST (15-37) U/L ALT (16-63) U/L Alkaline Phosphatase (46-116) U/L C-Reactive Protein (<1.0) mg/dL NT-Pro-B Natriuret Pep 82 (0-450) pg/mL Total Protein (6.4-8.2) g/dl Albumin (3.4-5.0) g/dl Globulin gm/dL Albumin/Globulin Ratio (1-2) TSH 3rd Generation (0.358-3.74) uIU/mL Urine Color (Yellow) Urine Appearance (Clear) Urine pH (5.0-8.0) Ur Specific [place] (1.005-1.030) Urine Protein (Negative) Urine Glucose (UA) (Negative) Urine Ketones (Negative) Urine Occult Blood (Negative) Urine Nitrite (Negative) Urine Bilirubin (Negative) Urine Urobilinogen (0.2-1.0) Ur Leukocyte Esterase (Negative) 06/17/21 Range/Units 12:24 WBC (4.23-9.07) K/mm3 RBC (4.63-6.08) M/mm3 Hgb (13.7-17.5) gm/dl Hct (40.1-51.0) % MCV (79.0-92.2) fl MCH (25.7-32.2) pg MCHC (32.2-35.5) g/dl RDW Std Deviation (35.1-43.9) fL Plt Count (163-337) K/mm3 MPV (9.4-12.3) fl Neut % (Auto) (34.0-67.9) % Lymph % (Auto) (21.8-53.1) % [place] % (Auto) (5.3-12.2) % Eos % (Auto) (0.8-7.0) Baso % (Auto) (0.1-1.2) % Neut # (Auto) (1.78-5.38) K/mm3 Lymph # (Auto) (1.32-3.57) K/mm3 [place] # (Auto) (0.30-0.82) K/mm3 Eos # (Auto) (0.04-0.54) K/mm3 Baso # (Auto) (0.01-0.08) K/mm3 ESR (0-15) mm/hr Sodium (136-145) mEq/L Potassium (3.5-5.1) mEq/L Chloride (98-107) mEq/L Carbon Dioxide (21-32) mEq/L Anion Gap (5-15) BUN (7-18) mg/dL Creatinine (0.7-1.3) mg/dL Est Cr Clr Drug Dosing mL/min Estimated GFR (MDRD) (>60) mL/min BUN/Creatinine Ratio (14-18) Glucose (70-99) mg/dL POC Glucose (70-99) mg/dL Hemoglobin A1c ( - 5.6) % Calcium (8.5-10.1) mg/dL Magnesium (1.8-2.4) mg/dL Total Bilirubin (0.2-1.0) mg/dL AST (15-37) U/L ALT (16-63) U/L Alkaline Phosphatase (46-116) U/L C-Reactive Protein (<1.0) mg/dL NT-Pro-B Natriuret Pep (0-450) pg/mL Total Protein (6.4-8.2) g/dl Albumin (3.4-5.0) g/dl Globulin gm/dL Albumin/Globulin Ratio (1-2) TSH 3rd Generation (0.358-3.74) uIU/mL Urine Color Yellow (Yellow) Urine Appearance Clear (Clear) Urine pH 6.0 (5.0-8.0) Ur Specific [place] 1.020 (1.005-1.030) Urine Protein 2+ H (Negative) Urine Glucose (UA) Negative (Negative) Urine Ketones Negative (Negative) Urine Occult Blood 2+ H (Negative) Urine Nitrite Negative (Negative) Urine Bilirubin Negative (Negative) Urine Urobilinogen 0.2 (0.2-1.0) Ur Leukocyte Esterase 2+ H (Negative) - Radiology Interpretation Free Text/Narrative:: 86-year-old male attends the ED for evaluation of balance problems. Clinically he is experiencing paroxysmal benign positional vertigo as some days he is fine and other days he has not. He never feels like his vision is failing and that he is going to pass out. It is more of a loss of balance that makes him staggering and potentially fall. He did fall 3 weeks ago injuring his right ribs and he nearly fell again yesterday. Today he feels normal with no vertigo symptoms. Neuro exam is otherwise normal. Neuro exam is grossly normal. CT head will be done today to rule out benign intracranial hypertension. Routine labs to be done including thyroid function. Looking at his medication list there are 3 medications in particular that may be causing problems such as sertraline, alfuzosin and aricept. - Re-Assessments/Exams Free Text/Narrative Re-Assessment/Exam: 06/17/21 12:11 CT of the head has been completed without contrast. Ventricles along with the basal cisterns and sulci over the convexities are mildly prom inent. Diminished density is noted within the periventricular and subcortical white matter. Diminished density is also noted within portions of the basal ganglia compatible with similar etiology. No other abnormal parenchymal densities are seen. No evidence of intracranial hemorrhage. No midline shift or mass-effect appreciated. Bone window settings were reviewed which show nothing acute within the paranasal sinuses or mastoid sinuses. Small foreign body is noted within the forehead which is stable from prior exam. Minimal soft tissue swelling is seen within the right forehead which is also stable. No acute calvarial abnormalities appreciated. Senescent changes has slightly worsened from previous head CT scan dated 04/09/15. 06/17/21 12:18 White count is normal at 4.28. Auto differential shows 72% neutrophils. Hemoglobin is 12.8 with hematocrit of 37.3. MCV is slightly elevated at 95.2. Platelet count is slightly low at 161,000. Sodium is 135 with a potassium of 4.0. Chloride 102 with a bicarb of 28. Anion gap is 9.0. BUN is 32 with a creatinine of 0.9 and a GFR greater than 60. Glucose in the lab was 184 bedside it was 180. Hemoglobin A1c is elevated at 8.3 indicating poor control of current diabetic state. Calcium is 9.0 with magnesium slightly low at 1.7. Liver function is normal other than slightly elevated alkaline phosphatase at 126. C-reactive protein less than 0.2. BNP is 82 total protein 6.7 with albumin fraction of 3.5 TSH is normal at 2.23. 06/17/21 12:38 essentially the labs came back all within normal limits. Minimal hyponatremia and minimal hypomagnesemia would not cause current symptom complex. I believe his vertigo symptoms are multifactorial. He is already losing his hearing and has 8 cranial nerve deterioration likely contributing to vertigo symptoms. Medication may be playing a role as 3 of the medications that he is on in particular could cause intermittent problems with balance.Aricept. Sertraline and Alfluzosin. He does have some degree of peripheral neuropathy in his lower extremities partly age-related in part related to diabetes with associated arthritis in his lower extremities which may cause him to feel off balance intermittently. His diabetes is also not super well controlled with a glycosylated protein of 8.3. He does not seem to have any central nervous system abnormality such as benign intracranial hypertension to be causing current symptoms. I had the patient up and walking in the hallway and part of his off balance is due to arthritic changes in his knees ankles and hips. Peripheral neuropathy may well be contributing to his being off balance as well. I could never identify that he had a true vertigo problem. I am going to have him stop both the alfuzosin and Aricept for the next 3 weeks and see if his balance improves. I am going to have him use his cane on a much more regular basis to prevent any falls for safety sake. Tentatively he will be following up with Dr. Griffith once he returns to the office. Departure - Departure Time of Disposition: 13:03 Disposition: Home, Self-Care 01 Condition: Fair Clinical Impression: Balance disorder - Discharge Information *PRESCRIPTION DRUG MONITORING PROGRAM REVIEWED*: Not Applicable *COPY OF PRESCRIPTION DRUG MONITORING REPORT IN PATIENT ELIZABETH: Not Applicable Referrals: Felipe Griffith MD [Primary Care Provider] - Forms: ED Department Discharge Additional Instructions: Because of balance problems is multifactorial. There is a component of vertigo which is an off-balance sensation with movement of the head or neck that occurs secondary to 8th cranial nerve deterioration or degeneration with age. The 8th cranial nerve is also involved in hearing and significant hearing loss is evident. Second problem is related to arthritic changes in the hips knees and ankles with an associated peripheral neuropathy which means the nerves in the bottom of the feet that send signals to the brain to male maintain balance are not functioning well secondary to diabetes. Blood sugar control could be improved since glycosylated protein is 8.3 suggesting the blood sugars have been running higher than they should for the last 3 months or more. I have concerns that medication may also be involved in causing off-balance sensation. I would suggest placing Aricept and Alfuzosin on hold for the next month and see if there is any improvement in balance symptoms. I would suggest strongly using a cane at all times particularly outside of the home when there is nothing else to hang onto but even within the home to minimize chances of a fall and a broken hip or worse. I would also suggest a physiotherapy consultation with an exercise program designed to improve balance and muscle strength in the lower extremities to help prevent a fall. Please have your daughter sort through your medications to take away the above medications and set them aside for a month. They can always be added back into treatment plan in the future. Of note all lab test done today as well as thyroid function studies were within normal limits other than very mild low serum sodium level and magnesium levels which are not causing current symptom complex. CT of the brain reveals age- appropriate degenerative changes with no tumor or benign intracranial hypertension as a cause of poor balance. Certainly follow-up with Dr. Griffith when he is able to return to the office. All of today's notes will be sent to the clinic and added to your chart. Sepsis Event Note (ED) - Focused Exam Vital Signs: Vital Signs Temp Pulse Resp BP Pulse Ox 06/17/21 12:21 60 20 159/68 H 93 L 06/17/21 10:20 36.1 C 54 L 18 172/70 H 99 - My Orders Last 24 Hours: My Active Orders 06/17/21 11:06 Orthostatic Vital Signs [RC] ASDIRECTED 06/17/21 12:24 URINALYSIS W/MICROSCOPIC [UA W/MICROSCOPIC] [URIN] Stat - Assessment/Plan Last 24 Hours: My Active Orders 06/17/21 11:06 Orthostatic Vital Signs [RC] ASDIRECTED 06/17/21 12:24 URINALYSIS W/MICROSCOPIC [UA W/MICROSCOPIC] [URIN] Stat
[2021-06-17 11:51] LABS: HEMOGLOBIN A1C 8.3 %
--- NOTE | 2021-06-17 12:02 | CT ---
Head CT Technique: Multiple axial sections through the brain were obtained. Intravenous contrast was not utilized. Reconstructed coronal and sagittal images were obtained. Comparison: Prior head CT study of 04/09/15. Findings: Ventricles along with basal cisterns and sulci over the convexities are mildly prominent. Diminished density is noted within the periventricular and subcortical white matter. Diminished density is also noted within portions of the basal ganglia compatible with similar etiology. No other abnormal parenchymal densities are seen. No evidence of intracranial hemorrhage. No midline shift or mass-effect is appreciated. Bone window settings were reviewed which show nothing acute within the paranasal sinuses or mastoid sinuses. Small foreign body is noted within the forehead which is stable from prior exam. Minimal soft tissue swelling is seen within the right forehead which is also stable. No acute calvarial abnormality is appreciated. Impression: 1. Senescent change as noted above. This senescent change has slightly worsened from previous head CT exam. 2. No acute intracranial abnormality is otherwise seen. Diagnostic code #2
[2021-06-17 13:32] VITALS: BP 149/86; PULSE 56
== END 2021-06-17 13:25 | disposition home or self-care (01) ==
LOC: JD.ED 10:01
DX: R26.89 Other abnormalities of gait and mobility (principal); I25.10 Atherosclerotic heart disease of native coronary artery without angina pectoris; E78.00 Pure hypercholesterolemia, unspecified; I10 Essential (primary) hypertension; K21.9 Gastro-esophageal reflux disease without esophagitis; E11.9 Type 2 diabetes mellitus without complications; Z95.5 Presence of coronary angioplasty implant and graft; Z79.899 Other long term (current) drug therapy; Z88.5 Allergy status to narcotic agent; Z88.8 Allergy status to other drugs, medicaments and biological substances; J44.0 Chronic obstructive pulmonary disease with (acute) lower respiratory infection
CPT/HCPCS: 36415; 70450; 70450-26; 80053; 81001; 82947; 83036; 83735; 83880; 84443; 85025; 85652; 86140; 93005; 93010; 99283; 99285-25

== ENCOUNTER 2023-10-21 16:17 | Emergency (ER) | payer MEDICARE, OTHER ==
[2023-10-21] MEDS ORDERED: Sodium Chloride 0.9% 10 ML Syringe FLUSH PRN (16:59)
[2023-10-21] MEDS ORDERED: Sodium Chloride 0.9% 1,000 ML IV SCH (17:00)
[2023-10-21] MEDS ORDERED: HYDROmorphone 0.5 MG/0.5 ML Syringe IVPUSH ONE (17:03)
[2023-10-21 17:32] LABS: BASOPHILS PERCENT AUTO 0.4 % (0.0-1.0); EOSINOPHILS PERCENT AUTO 0.2 % (0.0-6.0); HEMATOCRIT 32.3 % (42.0-52.0); IMMATURE GRAN ABSOLUTE AUTO 0.02 K/mm3 (0.00-0.05); IMMATURE GRAN PERCENT AUTO 0.4 % (0.0-0.4); LYMPHOCYTES ABSOLUTE AUTO 0.6 K/mm3 (1.0-4.8); MEAN CORPUSCULAR HGB CONC 34.1 g/dl (32.0-36.0); MEAN PLATELET VOLUME 8.6 fl (9.4-12.4); MONOCYTES ABSOLUTE AUTO 0.6 K/mm3 (0.0-0.8); MONOCYTES PERCENT AUTO 11.4 % (0.0-8.0); NEUTROPHILS ABSOLUTE AUTO 3.6 K/mm3 (1.8-7.7); NEUTROPHILS PERCENT AUTO 74.6 % (41.0-71.0); PLATELET COUNT,PLT 146 K/mm3 (150-400); RED BLOOD CELL COUNT 3.33 M/mm3 (4.52-5.90); WHITE BLOOD CELL COUNT,WBC 4.83 K/mm3 (3.9-11.3)
[2023-10-21 17:37] LABS: APPEARANCE,URINE CLEAR (Clear); BILIRUBIN,URINE NEGATIVE (Negative); COLOR,URINE YELLOW (Yellow); GLUCOSE,URINE NEGATIVE (Negative); KETONES,URINE NEGATIVE (Negative); LEUKOCYTE ESTERASE,URINE NEGATIVE (Negative); NITRITE,URINE NEGATIVE (Negative); OCCULT BLOOD,URINE TRACE-LYSED (Negative); PH,URINE 5.5 (5.0-8.0); PROTEIN,URINE 1+ (Negative); UROBILINOGEN,URINE 0.2 (0.2-1.0)
[2023-10-21 17:46] LABS: BACTERIA,URINE OCCASIONAL /hpf (FEW); MUCUS,URINE NOT SEEN /hpf (FEW); RBC,URINE 0-5 /hpf (0-5); SQUAMOUS EPITHELIAL CELLS,UR 0-5 /hpf (0-5); WBC,URINE 0-5 /hpf (0-5)
[2023-10-21 17:54] LABS: A/G RATIO 0.9 (1-2); ALBUMIN 3.4 g/dl (3.4-5.0); ANION GAP 13.1 (5-15); BILIRUBIN TOTAL 0.4 mg/dL (0.2-1.0); BUN/CREATININE RATIO 28.2 (14-18); CALCIUM 8.9 mg/dL (8.5-10.1); CREATININE 1.7 mg/dL (0.7-1.3); EST CRCL DRUG DOSING (CG) 31.61 mL/min; POTASSIUM,K 4.1 mEq/L (3.5-5.1); PROTEIN TOTAL,TP 7.4 g/dl (6.4-8.2)
[2023-10-21 18:46] VITALS: BP 125/77; PULSE 63
== END 2023-10-21 18:46 | disposition home or self-care (01) ==
LOC: JD.ED 16:17
DX: M54.50 Low back pain, unspecified (principal); I10 Essential (primary) hypertension; I25.10 Atherosclerotic heart disease of native coronary artery without angina pectoris; K21.9 Gastro-esophageal reflux disease without esophagitis; E11.9 Type 2 diabetes mellitus without complications; Z79.84 Long term (current) use of oral hypoglycemic drugs; Z88.5 Allergy status to narcotic agent; Z88.8 Allergy status to other drugs, medicaments and biological substances; Z79.899 Other long term (current) drug therapy
CPT/HCPCS: 36415; 74176; 80053; 81001; 83690; 85025; 96374; 99284; J1170; J3490; J7030

== ENCOUNTER 2024-05-08 12:06 | Emergency (ER) | payer MEDICARE ==
[2024-05-08] MEDS: Ondansetron 4 MG Tab.DIS PO ONE (13:00)
[2024-05-08 13:18] LABS: APPEARANCE,URINE CLEAR (Clear); BILIRUBIN,URINE NEGATIVE (Negative); COLOR,URINE LIGHT YELLOW (Yellow); GLUCOSE,URINE NEGATIVE (Negative); KETONES,URINE NEGATIVE (Negative); LEUKOCYTE ESTERASE,URINE NEGATIVE (Negative); NITRITE,URINE NEGATIVE (Negative); OCCULT BLOOD,URINE 1+ (Negative); PH,URINE 5.5 (5.0-8.0); PROTEIN,URINE 1+ (Negative); UROBILINOGEN,URINE 0.2 (0.2-1.0)
[2024-05-08 13:20] LABS: BASOPHILS PERCENT AUTO 0.3 % (0.0-1.0); HEMATOCRIT 33.6 % (42.0-52.0); HEMOGLOBIN 11.5 gm/dl (14.0-18.0); IMMATURE GRAN ABSOLUTE AUTO 0.04 K/mm3 (0.00-0.05); IMMATURE GRAN PERCENT AUTO 0.6 % (0.0-0.4); LYMPHOCYTES ABSOLUTE AUTO 0.6 K/mm3 (1.0-4.8); LYMPHOCYTES PERCENT AUTO 9.2 % (24.0-44.0); MEAN CORPUSCULAR HEMOGLOBIN 33.2 pg (28.0-32.0); MEAN CORPUSCULAR HGB CONC 34.2 g/dl (32.0-36.0); MEAN CORPUSCULAR VOLUME 97.1 fl (83.0-99.0); MEAN PLATELET VOLUME 8.9 fl (9.4-12.4); MONOCYTES ABSOLUTE AUTO 0.6 K/mm3 (0.0-0.8); MONOCYTES PERCENT AUTO 10.2 % (0.0-8.0); NEUTROPHILS ABSOLUTE AUTO 4.9 K/mm3 (1.8-7.7); NEUTROPHILS PERCENT AUTO 79.7 % (41.0-71.0); PLATELET COUNT,PLT 171 K/mm3 (150-400); RED BLOOD CELL COUNT 3.46 M/mm3 (4.52-5.90); WHITE BLOOD CELL COUNT,WBC 6.19 K/mm3 (3.9-11.3)
[2024-05-08 13:26] LABS: WBC,URINE 0-5 /hpf (0-5)
[2024-05-08 13:27] LABS: BACTERIA,URINE FEW /hpf (FEW); EPITHELIAL CELLS,URINE 0-5 /hpf (0-5); MUCUS,URINE RARE /hpf (FEW)
[2024-05-08 13:36] LABS: A/G RATIO 0.9 (1-2); ALBUMIN 3.4 g/dl (3.4-5.0); ANION GAP 14.2 (5-15); BILIRUBIN TOTAL 0.5 mg/dL (0.2-1.0); BUN/CREATININE RATIO 30.6 (14-18); CALCIUM 8.8 mg/dL (8.5-10.1); CREATININE 1.6 mg/dL (0.7-1.3); EST CRCL DRUG DOSING (CG) 30.88 mL/min; MAGNESIUM 1.7 mg/dL (1.8-2.4); POTASSIUM,K 4.2 mEq/L (3.5-5.1)
[2024-05-08 17:19] VITALS: BP 154/69; PULSE 63
== END 2024-05-08 14:29 | disposition home or self-care (01) ==
LOC: JD.ED 12:06
DX: F32.A Depression, unspecified (principal); R11.0 Nausea; E78.00 Pure hypercholesterolemia, unspecified; I25.10 Atherosclerotic heart disease of native coronary artery without angina pectoris; I10 Essential (primary) hypertension; K21.9 Gastro-esophageal reflux disease without esophagitis; E11.9 Type 2 diabetes mellitus without complications; Z79.899 Other long term (current) drug therapy; Z88.5 Allergy status to narcotic agent; Z88.8 Allergy status to other drugs, medicaments and biological substances
CPT/HCPCS: 36415; 80053; 81001; 83735; 85025; 99284; A9270

== ENCOUNTER 2025-03-29 20:07 | Emergency (ER) | payer MEDICARE ==
[2025-03-29 20:16] VITALS: BP 162/70
== END 2025-03-29 20:44 | disposition home or self-care (01) ==
LOC: JD.ED 20:07
DX: Z71.1 Person with feared health complaint in whom no diagnosis is made (principal); I25.10 Atherosclerotic heart disease of native coronary artery without angina pectoris; I10 Essential (primary) hypertension; E78.00 Pure hypercholesterolemia, unspecified; K21.9 Gastro-esophageal reflux disease without esophagitis; E11.9 Type 2 diabetes mellitus without complications; Z87.891 Personal history of nicotine dependence; Z88.5 Allergy status to narcotic agent; Z88.8 Allergy status to other drugs, medicaments and biological substances; Z79.899 Other long term (current) drug therapy
CPT/HCPCS: 99282; 99283

== ENCOUNTER 2025-06-18 15:09 | Inpatient (IN) | payer MEDICARE ==
[2025-06-18 16:03] LABS: BASOPHILS ABSOLUTE AUTO 0.0 K/mm3 (0.0-0.2); BASOPHILS PERCENT AUTO 0.2 % (0.0-1.0); EOSINOPHILS ABSOLUTE AUTO 0.0 K/mm3 (0.0-0.4); EOSINOPHILS PERCENT AUTO 0.0 % (0.0-6.0); IMMATURE GRAN ABSOLUTE AUTO 0.10 K/mm3 (0.00-0.05); IMMATURE GRAN PERCENT AUTO 0.8 % (0.0-0.4); LYMPHOCYTES ABSOLUTE AUTO 0.2 K/mm3 (1.0-4.8); LYMPHOCYTES PERCENT AUTO 2.0 % (24.0-44.0); MEAN PLATELET VOLUME 8.9 fl (9.4-12.4); MONOCYTES ABSOLUTE AUTO 0.6 K/mm3 (0.0-0.8); MONOCYTES PERCENT AUTO 5.1 % (0.0-8.0); NEUTROPHILS ABSOLUTE AUTO 10.9 K/mm3 (1.8-7.7); NEUTROPHILS PERCENT AUTO 91.9 % (41.0-71.0); NRBC ABSOLUTE 0.02 (0.00-0.02); NRBC PERCENT 0.2 % (0.0-0.2); PLATELET COUNT,PLT 172 K/mm3 (150-400); RED BLOOD CELL COUNT 3.32 M/mm3 (4.52-5.90); WHITE BLOOD CELL COUNT,WBC 11.84 K/mm3 (3.9-11.3)
[2025-06-18 16:27] LABS: INR 1.0
[2025-06-18 16:31] LABS: A/G RATIO 1.1 (1-2); ALANINE AMINOTRANSFERASE,ALT 38.0 U/L (16-63); ASPARTATE AMNIOTRANSFERASE,AST 24.0 U/L (15-37); BILIRUBIN TOTAL 0.8 mg/dL (0.2-1.0); BLOOD UREA NITROGEN,BUN 38.0 mg/dL (7-18); CARBON DIOXIDE,CO2 24.0 mEq/L (21-32); CHLORIDE,CL 101.0 mEq/L (98-107); CREATININE 1.5 mg/dL (0.7-1.3); EST CRCL DRUG DOSING (CG) 30.13 mL/min; ESTIMATED GFR 44.0 mL/min (>60); GLUCOSE RANDOM 306.0 mg/dL (70-99); POTASSIUM,K 3.8 mEq/L (3.5-5.1); PROTEIN TOTAL,TP 7.5 g/dl (6.4-8.2); SODIUM,NA 137.0 mEq/L (136-145)
[2025-06-18] MEDS: Sodium Chloride 0.9% 10 ML Syringe FLUSH PRN (16:46)
[2025-06-18 16:50] LABS: LACTIC ACID 1.6 mmol/L (0.4-2.0)
[2025-06-18] MEDS: Ondansetron 4 MG/2 ML SDV IVPUSH ONE (16:52)
[2025-06-18] MEDS: Sodium Chloride 0.9% 10 ML Syringe FLUSH ONE (16:54)
[2025-06-18] MEDS: Iopamidol 612 MG/ML 100 ML Bottle IVPUSH ONE (17:25)
[2025-06-18] MEDS: VANCOmycin 2 GM/400 ML 2 GM in Premix Bag 1 BAG IV ONE (17:55)
[2025-06-18 18:25] LABS: APPEARANCE,URINE CLEAR (Clear); GLUCOSE,URINE 2+ (Negative); OCCULT BLOOD,URINE 1+ (Negative)
[2025-06-18 18:35] LABS: EPITHELIAL CELLS,URINE 0-5 /hpf (0-5)
[2025-06-18] MEDS: Benzocaine 20% Topical Spray UD MUCMEM ONE (18:56)
[2025-06-18] MEDS ORDERED: Ondansetron 4 MG/2 ML SDV IVPUSH PRN (22:22)
[2025-06-19 07:48] LABS: A/G RATIO 1.0 (1-2); ALANINE AMINOTRANSFERASE,ALT 33.0 U/L (16-63); ASPARTATE AMNIOTRANSFERASE,AST 23.0 U/L (15-37); BILIRUBIN TOTAL 0.9 mg/dL (0.2-1.0); BLOOD UREA NITROGEN,BUN 27.0 mg/dL (7-18); CARBON DIOXIDE,CO2 22.0 mEq/L (21-32); CHLORIDE,CL 108.0 mEq/L (98-107); CREATININE 1.4 mg/dL (0.7-1.3); EST CRCL DRUG DOSING (CG) 32.28 mL/min; ESTIMATED GFR 48.0 mL/min (>60); GLUCOSE RANDOM 137.0 mg/dL (70-99); POTASSIUM,K 3.7 mEq/L (3.5-5.1); PROTEIN TOTAL,TP 6.3 g/dl (6.4-8.2); SODIUM,NA 139.0 mEq/L (136-145)
[2025-06-19] MEDS ORDERED: Ondansetron 4 MG Tab.DIS PO PRN (07:53)
[2025-06-19] MEDS ORDERED: Ondansetron 4 MG/2 ML SDV IV PRN (07:53)
[2025-06-19 08:22] LABS: IRON,FE 116 ug/dL (65-175); PERCENT FE SATURATION 42 % (20-55)
[2025-06-19] MEDS: Venlafaxine 37.5 MG Cap.ER PO SCH (08:41)
[2025-06-19] MEDS: Fluticasone NASAL Spray 16 GM Bottle NASBOTH SCH (08:41)
[2025-06-19] MEDS: Insulin Lispro 100 Unit/ML 3 ML KwikPen SUBCUT SCH (16:39)
[2025-06-19] MEDS: VANCOmycin 750 MG/150 ML 750 MG in Premix Bag 1 BAG IV SCH (17:34)
[2025-06-19] MEDS ORDERED: BETAMETHASONE VALERATE TOP SCH (21:00)
[2025-06-20 05:38] LABS: BASOPHILS ABSOLUTE AUTO 0.0 K/mm3 (0.0-0.2); BASOPHILS PERCENT AUTO 0.4 % (0.0-1.0); EOSINOPHILS ABSOLUTE AUTO 0.0 K/mm3 (0.0-0.4); EOSINOPHILS PERCENT AUTO 0.0 % (0.0-6.0); IMMATURE GRAN ABSOLUTE AUTO 0.03 K/mm3 (0.00-0.05); IMMATURE GRAN PERCENT AUTO 0.6 % (0.0-0.4); LYMPHOCYTES ABSOLUTE AUTO 0.6 K/mm3 (1.0-4.8); LYMPHOCYTES PERCENT AUTO 11.2 % (24.0-44.0); MEAN PLATELET VOLUME 9.2 fl (9.4-12.4); MONOCYTES ABSOLUTE AUTO 0.6 K/mm3 (0.0-0.8); MONOCYTES PERCENT AUTO 10.2 % (0.0-8.0); NEUTROPHILS ABSOLUTE AUTO 4.2 K/mm3 (1.8-7.7); NEUTROPHILS PERCENT AUTO 77.6 % (41.0-71.0); NRBC ABSOLUTE 0.00 (0.00-0.02); NRBC PERCENT 0.0 % (0.0-0.2); PLATELET COUNT,PLT 143 K/mm3 (150-400); RED BLOOD CELL COUNT 2.78 M/mm3 (4.52-5.90); WHITE BLOOD CELL COUNT,WBC 5.37 K/mm3 (3.9-11.3)
[2025-06-20 06:01] LABS: A/G RATIO 1.1 (1-2); ALANINE AMINOTRANSFERASE,ALT 28.0 U/L (16-63); ASPARTATE AMNIOTRANSFERASE,AST 22.0 U/L (15-37); BILIRUBIN TOTAL 0.9 mg/dL (0.2-1.0); BLOOD UREA NITROGEN,BUN 22.0 mg/dL (7-18); CARBON DIOXIDE,CO2 22.0 mEq/L (21-32); CHLORIDE,CL 107.0 mEq/L (98-107); CREATININE 1.5 mg/dL (0.7-1.3); EST CRCL DRUG DOSING (CG) 30.13 mL/min; ESTIMATED GFR 44.0 mL/min (>60); GLUCOSE RANDOM 121.0 mg/dL (70-99); POTASSIUM,K 3.2 mEq/L (3.5-5.1); PROTEIN TOTAL,TP 5.9 g/dl (6.4-8.2); SODIUM,NA 139.0 mEq/L (136-145)
[2025-06-20] MEDS ORDERED: Labetalol 100 MG/20 ML MDV IVPUSH PRN (08:39)
[2025-06-20] MEDS ORDERED: hydrALAZINE 20 MG/ML SDV IVPUSH PRN (08:39)
[2025-06-20] MEDS: Potassium Phosphates 30 MMOLE in Sodium Chloride 0.9% 500 ML IV ONE (12:51)
[2025-06-20] MEDS: Magnesium Sulf/Wat 4 GM/50 mL 4 GM in Premix Bag 1 BAG IV ONE (12:52)
[2025-06-20] MEDS: Potassium Chloride 20 MEQ Tab.ER PO ONE (12:54)
[2025-06-21 06:12] LABS: BLOOD UREA NITROGEN,BUN 23.0 mg/dL (7-18); CARBON DIOXIDE,CO2 22.0 mEq/L (21-32); CREATININE 1.6 mg/dL (0.7-1.3); EST CRCL DRUG DOSING (CG) 28.24 mL/min; ESTIMATED GFR 41.0 mL/min (>60); GLUCOSE RANDOM 140.0 mg/dL (70-99); PHOSPHORUS 3.4 mg/dL (2.6-4.7); POTASSIUM,K 4.1 mEq/L (3.5-5.1); SODIUM,NA 138.0 mEq/L (136-145)
[2025-06-21 06:24] LABS: CHLORIDE,CL 105.0 mEq/L (98-107)
[2025-06-21] MEDS: Sennosides/Docusate Sodium 50-8.6 MG Tab PO PRN (10:28)
[2025-06-21 11:14] VITALS: BP 150/67; PULSE 72
== END 2025-06-21 11:11 | disposition home or self-care (01) | DRG 392 ==
LOC: JD.ED 15:09 → JD.MS 19:22
PROVIDERS: ADMIT Internal Medicine; ATTEND Student in an Organized Health Care Education/Training Program
DX: R10.30 Lower abdominal pain, unspecified (principal); L03.112 Cellulitis of left axilla; K56.7 Ileus, unspecified; F03.B3 Unspecified dementia, moderate, with mood disturbance; L02.412 Cutaneous abscess of left axilla; K92.0 Hematemesis; K92.1 Melena; K52.9 Noninfective gastroenteritis and colitis, unspecified; B95.62 Methicillin resistant Staphylococcus aureus infection as the cause of diseases classified elsewhere; R53.1 Weakness; H54.7 Unspecified visual loss; I25.10 Atherosclerotic heart disease of native coronary artery without angina pectoris; E78.00 Pure hypercholesterolemia, unspecified; K21.9 Gastro-esophageal reflux disease without esophagitis; I10 Essential (primary) hypertension; M19.90 Unspecified osteoarthritis, unspecified site; E11.9 Type 2 diabetes mellitus without complications; Z96.643 Presence of artificial hip joint, bilateral; N40.0 Benign prostatic hyperplasia without lower urinary tract symptoms; L40.9 Psoriasis, unspecified; Z90.5 Acquired absence of kidney; H91.90 Unspecified hearing loss, unspecified ear; K80.20 Calculus of gallbladder without cholecystitis without obstruction; K76.0 Fatty (change of) liver, not elsewhere classified; N18.31 Chronic kidney disease, stage 3a; I12.9 Hypertensive chronic kidney disease with stage 1 through stage 4 chronic kidney disease, or unspecified chronic kidney disease; M10.9 Gout, unspecified; N40.1 Benign prostatic hyperplasia with lower urinary tract symptoms; N39.498 Other specified urinary incontinence; E87.6 Hypokalemia; E83.42 Hypomagnesemia; K59.00 Constipation, unspecified; Z79.899 Other long term (current) drug therapy; Z95.5 Presence of coronary angioplasty implant and graft; Z85.46 Personal history of malignant neoplasm of prostate; Z88.5 Allergy status to narcotic agent; Z88.8 Allergy status to other drugs, medicaments and biological substances; Z98.49 Cataract extraction status, unspecified eye; Z90.89 Acquired absence of other organs; Z87.19 Personal history of other diseases of the digestive system; Z87.39 Personal history of other diseases of the musculoskeletal system and connective tissue
CPT/HCPCS: 36415; 74019; 74019-26; 74177; 74177-26; 80048; 80053; 80202; 81001; 82947; 83540; 83605; 83690; 83735; 84100; 84466; 85014; 85018; 85025; 85610; 86140; 87040; 87426-QW; 96365; 96367; 96375; 97110-GP; 97112-GP; 97116-GP; 97162-GP; 99222; 99223; 99233; 99239; 99285; 99285-25; A9270-GY; J1171; J2405; J2543; J3375; J3475; J3490; J7030; J7040; Q9967

== ENCOUNTER 2025-08-21 09:30 | Emergency (ER) | payer MEDICARE ==
[2025-08-21] MEDS ORDERED: Sodium Chloride 0.9% 10 ML Syringe FLUSH PRN (10:08)
[2025-08-21 10:29] LABS: BASOPHILS ABSOLUTE AUTO 0.0 K/mm3 (0.0-0.2); BASOPHILS PERCENT AUTO 0.3 % (0.0-1.0); EOSINOPHILS ABSOLUTE AUTO 0.0 K/mm3 (0.0-0.4); EOSINOPHILS PERCENT AUTO 0.0 % (0.0-6.0); IMMATURE GRAN ABSOLUTE AUTO 0.06 K/mm3 (0.00-0.05); IMMATURE GRAN PERCENT AUTO 1.0 % (0.0-0.4); LYMPHOCYTES ABSOLUTE AUTO 0.4 K/mm3 (1.0-4.8); LYMPHOCYTES PERCENT AUTO 7.0 % (24.0-44.0); MEAN PLATELET VOLUME 9.2 fl (9.4-12.4); MONOCYTES ABSOLUTE AUTO 0.7 K/mm3 (0.0-0.8); MONOCYTES PERCENT AUTO 11.7 % (0.0-8.0); NEUTROPHILS ABSOLUTE AUTO 4.9 K/mm3 (1.8-7.7); NEUTROPHILS PERCENT AUTO 80.0 % (41.0-71.0); NRBC ABSOLUTE 0.00 (0.00-0.02); NRBC PERCENT 0.0 % (0.0-0.2); PLATELET COUNT,PLT 207 K/mm3 (150-400); RED BLOOD CELL COUNT 2.94 M/mm3 (4.52-5.90); WHITE BLOOD CELL COUNT,WBC 6.16 K/mm3 (3.9-11.3)
[2025-08-21 10:56] LABS: A/G RATIO 0.8 (1-2); ALANINE AMINOTRANSFERASE,ALT 24.0 U/L (16-63); ASPARTATE AMNIOTRANSFERASE,AST 16.0 U/L (15-37); BILIRUBIN TOTAL 0.4 mg/dL (0.2-1.0); BLOOD UREA NITROGEN,BUN 35.0 mg/dL (7-18); CARBON DIOXIDE,CO2 28.0 mEq/L (21-32); CHLORIDE,CL 104.0 mEq/L (98-107); CREATININE 1.5 mg/dL (0.7-1.3); EST CRCL DRUG DOSING (CG) 30.13 mL/min; ESTIMATED GFR 44.0 mL/min (>60); GLUCOSE RANDOM 214.0 mg/dL (70-99); POTASSIUM,K 3.6 mEq/L (3.5-5.1); PROTEIN TOTAL,TP 6.8 g/dl (6.4-8.2); SODIUM,NA 141.0 mEq/L (136-145); TROPONIN I HIGH SENSITIVITY 25.0 pg/mL (<=76)
[2025-08-21 11:19] LABS: APPEARANCE,URINE SLT CLOUDY (Clear); GLUCOSE,URINE NEGATIVE (Negative); OCCULT BLOOD,URINE 1+ (Negative)
[2025-08-21 11:22] LABS: EPITHELIAL CELLS,URINE 0-5 /hpf (0-5)
[2025-08-21 13:14] VITALS: BP 146/69; PULSE 69
== END 2025-08-21 12:50 | disposition home or self-care (01) ==
LOC: JD.ED 09:30
DX: R06.02 Shortness of breath (principal); I25.10 Atherosclerotic heart disease of native coronary artery without angina pectoris; I10 Essential (primary) hypertension; E78.00 Pure hypercholesterolemia, unspecified; K21.9 Gastro-esophageal reflux disease without esophagitis; E11.9 Type 2 diabetes mellitus without complications; Z95.5 Presence of coronary angioplasty implant and graft; Z79.899 Other long term (current) drug therapy; Z79.84 Long term (current) use of oral hypoglycemic drugs; Z88.8 Allergy status to other drugs, medicaments and biological substances; Z88.5 Allergy status to narcotic agent
CPT/HCPCS: 36415; 71045; 71045-26; 80053; 81001; 83735; 83880; 84484; 85025; 85379; 87086; 93005; 93010; 99283; 99285